=== PATIENT | female | born 1945 | race Caucasian/White ===

== ENCOUNTER → 2024-01-08 11:09 | Outpatient (REF) | payer MEDICARE, OTHER, SELFPAY | LOC: HWRCS 11:09 | PROVIDERS: ATTENDING PHYSICIAN Nurse Practitioner; FAMILY PHYSICIAN Family Medicine | DX: I48.0 Paroxysmal atrial fibrillation (principal); R06.02 Shortness of breath | CPT/HCPCS: 93306 ==

== ENCOUNTER 2024-05-20 05:54 | Day surgery (SDC) | payer MEDICARE, OTHER, SELFPAY ==
[2024-05-20] VITALS (21 sets, daily range): BP systolic 62–128; BP diastolic 46–70; BMI 23.4
[2024-05-20 09:15] LABS: ACT-LR - POC 308 Seconds (116-155)
[2024-05-20 09:36] LABS: ACT-LR - POC 355 Seconds (116-155)
[2024-05-20 09:57] LABS: ACT-LR - POC 366 Seconds (116-155)
--- NOTE | 2024-05-20 10:23 | ITS.CL.ABL ---
Web Marketing Manager - Ablation
Ablation
Procedure Report:
ELECTROPHYSIOLOGIC STUDY AND POSSIBLE ABLATION
DATE: May 20, 2024
Primary care: Dr Rhett Cyr
Primary regulator mechanic: Dr Dean Cantrell
Primary care: Programmed electrical stimulation induced an irregular atrial tachycardia between cycle length 290 and 340. At times when cycle length would stabilize entrainment pacing from the right atrium finds the right atrium to be outside the
tachycardia circuit.
Horse Stud Worker (present/active through the entirety of the procedure): Jose Hagan M.D.
INDICATION:
Symptomatic Atrial Fibrillation and atrial tachycardia.
Paroxysmal (previously persistent, arrhythmia burden improved significantly after prior ablation May 18, 2020)
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
HISTORY: See H and P.
Symptomatic AF, poorly controlled with attempted medical therapy.
JUDIE 05/15/20 without BRANDON thrombus
Platelet is 69,000
HAS-BLED: 2
Age
H/O Bleeding
CHADSVASc: 3
Age
F Gender
PRESENTING RHYTHM: SR with frequent PACs and short runs of PAT
HISTORY: See H and P.
Symptomatic AF, poorly controlled with attempted medical therapy.
ANTIARRHYTHMIC DRUG: Sotalol 120 mg twice daily
ANTICOAGULATION: Currently not anticoagulated due to recurrent severe thrombocytopenia from ITP
'TIME-OUT': called and confirmed.
SEDATION/ANESTHESIA: provided via the anesthesia department using general anesthesia.
PROCEDURE:
Ultrasound Guidance with real-time visualization of needle insertion and vessel patency performed by ca for femoral venous Vascular Access. Images were taken and saved for the patient's permanent record. Imaging findings typical femoral venous
anatomy. Direct visualization of needle puncture into the femoral vein was observed and recorded.
A decapolar CS catheter was placed within the CS for mapping and pacing.
The intracardiac ultrasound catheter was positioned in the RA for continuous intracardiac ultrasound imaging.
Heparin bolus and infusion to target ACT at 300 -350 seconds was administered. Transseptal puncture was performed. This entailed advancing a sheath with dilator into the superior vena cava and withdrawing both (monitoring intracardiac ultrasound,
fluoroscopy and tip pressure) with the tip oriented toward the atrial septum. The fossa ovalis was engaged (indicated by sudden displacement of the sheath tip as well as tenting of the fossa seen on intracardiac ultrasound).
Programmed electrical stimulation induced an irregular atrial tachycardia between cycle length 290 and 340. At times when cycle length would stabilize entrainment pacing from the right atrium finds the right atrium to be outside the tachycardia
circuit.
Transseptal puncture was performed. Left atrial catheter position was confirmed by echocardiographic imaging, pressure monitoring (LA mean pressure 16 mm Hg) and fluoroscopy. The sheath was advanced over the dilator and positioned in the left
atrium.
The [employer] Nearesta multipolar mapping/ablation Sphere-9 catheter was positioned through the transseptal sheath for high density mapping.
Geometry and voltage mapping was performed using the [employer] mapping system for three-dimensional electroanatomical mapping.
Catheter positioning was guided and confirmed using both I.C.E. and fluoroscopy.
Extensive three-dimensional electroanatomical mapping was performed. From her prior ablation there is near isolation of all 4 pulmonary veins (LSPV, LIPV, RSPV, RIPV). There is reconnection of the left inferior pulmonary vein towards its inferior
posterior quadrant. Mapping of the posterior wall of the left atrium finds a scarred left atrial wall which is not isolated.
Ablation strategy consisted of very isolating the left inferior pulmonary vein. Additional ablation strategy included ablation to isolate the posterior wall of the left atrium.
Cardioversion restored sinus rhythm.
Programmed electrical stimulation with burst atrial pacing down to 300 ms could not induce an arrhythmia. Burst atrial pacing down to 250 ms from the atria did induce a regular atrial tachycardia cycle length 290 ms. High density electroanatomical
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
Ablation strategy was to create a line of block from the right superior pulmonary vein down to the mitral valve as this was an area of marked velocity slowing.
While creating this ablation line the tachycardia slowed then terminated. Additional pulsed electric field ablation was performed along this line.
They will programmed electrical stimulation failed to induce any sustained arrhythmias.
I.C.E. :
Pre-Ablation Post-Ablation
LVEF: 55 % 55 %
WMA: None None
Pericardial effusion: None None
Additionally today, I interrogated the permanent pacemaker, [employer]onic dual-chamber permanent pacemaker. At the beginning of the study and at the end of the study there is no change in measured P waves and R waves or lead impedances. There is no
change in fluoroscopic appearance of the leads. I did reprogram pacing parameters to DDDR 70-130 ppm.
COMPLICATIONS:
None
SUMMARY:
- Mapping and ablation to isolate the PVs (Left PV isolation)
- Additional AF ablation set after PVI (LA posterior wall).
- Mapping and ablation of second tachycardia(Left atrial macroreentrant tachycardia)
- 3-D Electroanatomical Mapping
- Intracardiac Ultrasound
- Ultrasound guidance for vascular access
- Interrogation and reprogramming of the dual-chamber permanent pacemaker
Post ablation, I discussed today's findings and results with the patient's , Parveen.
RECOMMENDATIONS:
- Observe in monitored bed.
- She had not been on oral anticoagulation due to her severe thrombocytopenia from ITP. Most recent platelet count is up to 69,000. Will initiate Eliquis 5 mg twice daily and she will need to have her CBC followed closely. I will communicate this
to her regulator mechanic, Dr. Cantrell. Plan will be to maintain Eliquis for 2 months.
- Continue sotalol 120 mg twice daily
- Office visit with me will be scheduled for July 29, 2024
Copy to:
Dr Rhett Cyr
Dr Dean Cantrell
[2024-05-20] MEDS: ZOFRAN 4 MG IV (10:42)
--- NOTE | 2024-05-20 11:07 | PTCARENOTE ---
Pt is post PVI. EKG done and sent to Dr Hagan via [facility]. No new orders at this time.
--- NOTE | 2024-05-20 11:33 | PTCARENOTE ---
Pt turned for lung and skin assessment. Remainder of patches removed. Pt with petecchiae and ecchymosis noted on right upper back from previously removed patch. Pt also noted to have raised purple area to left lower back from patch removed. No open
skin wounds noted. Anushka CHAMBERLAIN made aware and in to evaluate pt. Will continue to monitor.
--- NOTE | 2024-05-20 15:06 | PTCARENOTE ---
Pt states she feels like she is having gas pains. Pt ambulated to the bathroom and urinated without difficulty. Pt states she has belched which has made her feel better. Pt requested and given kelley sam. Pt drinking kelley without difficulty. Will
continue to monitor.
--- NOTE | 2024-05-20 15:20 | PTCARENOTE ---
Pt states she is still having 'gas pains' rated 2/10. VSS. Pt's color is good. Pt with a run of AT and 2 PVC's but asymptomatic. Pt's at pt bedside. Will continue to monitor.
--- NOTE | 2024-05-20 15:30 | PTCARENOTE ---
Addendum entered by Leonora Rivas RN 05/20/24 15:56:
Anushka CHAMBERLAIN made aware of pt's rhythm strips.
Original Note:
Pt ambulated to bathroom again and states she has some relief after having gas while in the bathroom. Pt states she wants to lay flat in stretcher to stretch out and help with her gas pains. Pt laying flat and states 'this is helping me a lot'. Will
continue to monitor.
--- NOTE | 2024-05-20 15:55 | PTCARENOTE ---
Pt states she feels much better and is ready to go home. Right groin remains stable. VSS. Pt to be discharged.
--- NOTE | 2024-05-20 16:06 | W.PN.UPDATE ---
Update Note
Progress Note Update
Pt seen post PFA. Right groin site without ht/bleeding, non tender. OOB ambulating, urinating without difficulty. Some gas/flatulence post procedure, improves with ambulating. Post EKG APaced w/underlying SR, 1st deg AVB/RBBB as before, 70s, no
acute changes. Pt had not been on OAC and only low dose aspirin prior to procedure d/t history ITP. She will stop aspirin now and start eliquis 5mg BID, first dose tonight. She will remain on for several months until stopped per cardiology, at which
time she will resume aspirin. Followup at [facility] as scheduled. Home today if groin site/tele remain stable.
== END 2024-05-20 16:10 | disposition home or self-care (01) ==
LOC: CATH 05:54
PROVIDERS: ATTENDING PHYSICIAN Internal Medicine Cardiovascular Disease; FAMILY PHYSICIAN Family Medicine
DX: I48.0 Paroxysmal atrial fibrillation (principal); I08.3 Combined rheumatic disorders of mitral, aortic and tricuspid valves; I47.19 Other supraventricular tachycardia; I45.10 Unspecified right bundle-branch block; E03.9 Hypothyroidism, unspecified; Z85.3 Personal history of malignant neoplasm of breast; Z85.820 Personal history of malignant melanoma of skin; Z79.82 Long term (current) use of aspirin
CPT/HCPCS: 85347; 86850; 86900; 86901; 93005; 93312; 93320; 93325; 93655; 93656; 93657; C1730; C1733; C1759; C1760; C1766; C1892; C1894

== ENCOUNTER 2024-06-18 13:33 | Inpatient (IN) | payer MEDICARE, OTHER, SELFPAY ==
[2024-06-18] VITALS (33 sets, daily range): BP systolic 102–142; BP diastolic 53–105; BMI 23.5; BMI 23.9
[2024-06-18 05:59] LABS: % Basophils 0.5 % (0-2); % Eosinophils 0.8 % (0-6); % Immature Granulocytes 0.5 % (0-0.5); % Monocytes 5.9 % (1.7-9.3); % Neutrophils 70.3 % (42.2-75.2); Absolute Eosinophils 0.1 10^3/uL (0-0.7); Absolute Lymphocytes 1.4 10^3/uL (1.2-3.4); Absolute Monocytes 0.4 10^3/uL (0.1-0.6); Absolute Neutrophils 4.5 10^3/uL (1.4-6.5); Hematocrit 37.1 % (37.0-47.0); Hemoglobin 12.7 g/dL (12.0-16.0); Mean Corp Hgb Conc. 34.2 g/dL (33.0-37.0); Mean Corpuscular Hgb 30.8 pg (27.0-31.0); Mean Platelet Volume 12.3 fL (7.4-10.4); Nucleated Red Blood Cells % 0 %; Platelet Count 40 10^3/uL (130-400); Red Blood Cell Count 4.12 10^6/uL (4.20-5.40); Red Cell Dist. Width 13.4 % (11.5-14.5); White Blood Cell Count 6.4 10^3/uL (4.8-10.8)
--- NOTE | 2024-06-18 06:09 | ED.GENMED ---
History of Present Illness
General
Chief Complaint: Breathing Problem
Source: patient, records and spouse
Exam Limitations: none
Time Seen by Provider: 06/18/24 06:07
Nursing documentation reviewed up to this point in time: agreed with
History of Present Illness
History of Present Illness:
78-year-old female with a past medical history of atrial fibrillation on Eliquis, hyperthyroidism who presents to the ER with her for evaluation of multiple complaints�primary complaint which prompted ER visit was nausea with dry heaves.
Patient reports that she has history of A-fib/SVT and sees Dr. Christopher Hagan. She apparently had a cardiac ablation last month and says that since this ablation she has had general fatigue, some mild exertional dyspnea and lightheaded. She also
is concerned about sleep issues which she says have been going on for at least a month and probably longer and for which her primary doctor has prescribed Ambien. Today she presents to the emergency room for nausea and worsening fatigue. She says
that this has been ongoing for about 4 days this morning progressed to the point that she was having dry heaves which prompted her to finally come to the ER to be assessed. She has had associated diarrhea. She reports some abdominal
bloating/discomfort. Reports mild headache. She denies any chest pain. She denies any cough or fever. She denies any other complaints. Denies prior history of abdominal surgeries.
Review of Systems
Review of Systems
All Other Systems: ROS reviewed and negative except as documented in HPI and ROS
Constitutional: Reports fatigue; Denies fever or chills
Respiratory: Denies cough or trouble breathing
Cardiac: Denies chest pain
ABD/GI: Reports abdominal pain, nausea and diarrhea; Denies vomiting
: Denies flank pain
Musculoskeletal: Denies neck pain
Neurological: Reports dizzy and headache
Phy Exam
Physical Exam
Physical Exam:
General: Awake, alert, oriented x3; no acute distress
Head: Normocephalic, atraumatic
Eyes: Conjunctiva normal, pupils equal round and reactive to light bilaterally
Throat: Airway intact, handling secretions
Neck: Trachea midline, supple without meningismus
Lungs: Clear to auscultation bilaterally, no wheezing, rales, rhonchi
Heart: Regular rate and rhythm, no murmurs, gallops, or rubs
Abd: Soft, nondistended, mildly tender across the upper abdomen
Neuro: No gross deficits
Extremities: No edema in extremities, equal pulses in all extremities
Scores
Heart Failure Risk
Heart Failure Risk Score: Not Applicable
Heart Score for Chest Pain Patients
STEMI patient?: Not applicable
Withdrawal Assessment of Alcohol
Withdrawal Assessment Completed?: Not applicable
Course
Orders/Labs/Results
Orders:
Orders
06/18/24
Electrocardiogram (*1) Stat
Comment: ALREADY DONE
06/18/24 05:05
EKG- Treatment ONCE
06/18/24 05:10
Electrocardiogram (*1) Urgent
Reason for Study: Fatigue / Weakness
06/18/24 05:11
EKG- Treatment ONCE
06/18/24 05:42
Complete Blood Count/With Diff Urgent
Comprehensive Metabolic Panel Urgent
Troponin I Urgent
06/18/24 06:09
CR Chest Portable - 1 View Urgent
Comment:
Reason For Exam: sob
Reason Study Needs to be Portable: Unable to Transport
06/18/24 07:19
Ondansetron Injectable [Zofran] 4 mg IV NOW STA
06/18/24 07:20
CT Abd/pel (oral only)-DH Only Urgent
Comment:
Reason For Exam: abd bloating, N/V, upper abd tenderness
0.9% Sodium Chloride 500 ml [Nss] 500 ml IV BOLUS
Iohexol [Omnipaque] See Protocol PO NOW STA
06/18/24 07:25
Interrogate Pacemaker- Treatment ONCE
06/18/24 08:18
Lipase Urgent
TSH Reflex To Free T4 Urgent
06/18/24 10:56
Electrocardiogram (*1) Urgent
Reason for Study: Atrial Fibrillation
EKG- Treatment ONCE
06/18/24 11:23
Propofol [Diprivan] 20 ml .ROUTE .STK-MED
06/18/24 11:41
Ondansetron Injectable [Zofran] 4 mg .ROUTE .STK-MED ONE
06/18/24 11:42
Ondansetron Injectable [Zofran] 4 mg IV NOW STA
06/18/24 11:44
Propofol [Diprivan] 40 mg IV NOW STA
06/18/24 11:50
EKG with chest pain [ECG as needed] As Directed
ECG as needed for:: Rhythm Change
06/18/24 11:54
EKG with chest pain [ECG as needed] As Directed
ECG as needed for:: Rhythm Change
06/18/24 12:25
Metoprolol [Lopressor] 5 mg IV NOW STA
06/18/24 12:41
Admit/Transfer Patient As Directed
Co-Sign Provider:
Level of Care: Inpatient admission
Assign to:: Telemetry
Physician / Group: Eligio
Diagnosis: Afib with RVR
Reason for Telemetry: Arrhythmia
Date to Stop Telemetry: 06/21/24
Time to Stop Telemetry: 11:00
Reason for Hospitalization: Rate Control
Expected length of stay greater than two midnights?: Yes
ELOS- Estimated Length of Stay in days: 3
I certify the patient meets the requirements for IP care: Yes
PRN Pain Medication Management As Directed
May give lesser potent ordered pain med per pt: Yes
preference::
Protocol:: Medication orders for pain may be administered in a
manner that supports deferring to patient preference
when the pt is:
- Requesting an ordered lesser potent pain medication.
Least to most potent pain medications are defined
as: acetaminophen < NSAID < tramadol < opioids
(morphine, oxycodone, hydromorphone).
- Requesting a lesser dose of the same medication IF
ORDERED.
- Requesting a less intrusive route of administration
if both routes are prescribed by the provider (PO <
IV).
06/18/24 12:42
Code Status As Directed
Resuscitation Status: Full Code
06/18/24 12:43
Apixaban [Eliquis] 5 mg PO NOW STA
06/21/24 11:00
DC Protocol for Telemetry ONCE
Abnormal Lab Results
06/18/24
05:42
RBC 4.12 L 10^6/uL
(4.20-5.40)
Plt Count 40 L 10^3/uL
(130-400)
MPV 12.3 H fL
(7.4-10.4)
Sodium 133 L mmol/L
(135-145)
Chloride 97 L mmol/L
(98-107)
BUN 19 H mg/dl
(7-17)
Glucose 127 H mg/dl
(70-99)
06/18/24 05:42
06/18/24 05:42
Vital Signs
Initial and Last Documented VS:
Initial Vital Signs
Temp Pulse Resp BP Pulse Ox
37.2 C 100 25 116/62 96
06/18/24 05:01 06/18/24 05:01 06/18/24 05:01 06/18/24 05:01 06/18/24 05:01
Last Documented Vital Signs
Temp Pulse Resp BP Pulse Ox
37.3 C 130 23 113/85 95
06/18/24 12:10 06/18/24 14:00 06/18/24 14:00 06/18/24 14:00 06/18/24 14:00
Procedures
Cardioversion
Indication:: Afib
Performed by:: Lance Pinon MD
Synchronized?: Yes
Energy Used: 200 joules
Number of attempts: 3 (200J, 300J, 360J)
Successful?: No
ASA Risk Score: Class II
Any reaction or bad outcome to prior sedation/anesthesia?: No history of a reaction
Sedation level to be attained: moderate
Chart and allergies reviewed: Yes
Patient reassessed prior to sedation: Yes
Time out completed at (validating right patient & procedure): 11:44
History of difficult intubation: No
Airway free of obstruction: Yes
Patient has a gag reflex: Yes
Patient is able to open mouth: Yes
Patient has no dentures: Yes
Patient has no loose teeth: Yes
Medication administered by Provider during Moderate Sedation: IV Propofol (mg)
Total dose administered: 40
Time drug administered: 11:44
Start Time: 11:44
Stop Time: 11:58
MDM/Problems Addressed
Differential Diagnosis Includes:
Nausea/dry heaves: Gastritis, enteritis, bowel obstruction, pancreatitis, cholelithiasis; lower suspicion for anginal equivalent/VT
Fatigue/exertional shortness of breath: Symptomatic A-fib, anemia, electrolyte derangement/dehydration; CHF less likely clinically
MDM/Problems Addressed:
78-year-old female presents for evaluation of nausea with dry heaves and diarrhea over the past few days; also concerned about fatigue, exertional dyspnea and dizziness, sleep issues which have been ongoing for the past month or 2. Vital signs on
arrival significant for tachycardia and mild tachypnea. Physical exam as above. Will place an IV check labs including a CBC and a CMP, lipase, troponin, proBNP. Check thyroid studies. Check chest x-ray. Check an EKG. Will check CT abdomen
pelvis. Provide fluids and antiemetic. Monitor closely reassess as the above.
Labs reviewed: CBC unremarkable, CMP no clinically significant abnormalities. Troponin undetectable. Thyroid studies normal. Chest x-ray no acute disease. CT abdomen pelvis shows no acute abnormality to account for symptoms. Possible she has
mild viral illness causing nausea/dry heaves/diarrhea over the past few days. Regarding her weakness and shortness of breath since ablation: Her EKG today shows atrial fibrillation; her heart rate initially was in the 80s but clinical reassessment
she appears to be in rapid A-fib with heart rate in the 120s. Suspect that this is likely etiology of her symptoms that have been ongoing for the past month. She is maintained on Eliquis and compliant for the past month. I think she would be a
reasonable candidate for ED cardioversion and she is agreeable to this. I did discuss with cardiology who agrees reasonable candidate for cardioversion.
Attempted cardioversion as documented in procedure note unfortunately patient remains in atrial fibrillation with RVR although she will occasionally have dips in her heart rate into the 80s where she appears to be in atrial paced rhythm. Case
discussed with cardiology will plan to admit for adjustments of her cardiac medications. Trial dose of Lopressor here. Case discussed with hospitalist for admission.
Chronic conditions affecting care:
Atrial fibrillation
*Radiology
Radiology exam reviewed: radiology read reviewed
*Pulse Oximetry
Patient hypoxic: no
*EKG
Interpreted by ED Provider?: Yes
Heart Rate: 89
Rate: normal
Rhythm: a-fib
[place]: right axis deviation
QRS Pattern: right bundle branch block
*Critical Care Note
Total Time (30-74mins, 75-104mins- exclusive of procedures): Not Applicable
Data Reviewed
Review of Other/Old Records Reveals: Labs and Records
Source: patient and spouse
Patient Management
Discussion with other providers: Hospitalist (Discussed with hospitalist) and Industrial Relations Director (Discussed with cardiology)
Escalation/DeEscalation of care consider admission/obs:
Admission indicated
ED Attending Note
-
Portions of this chart may have been created with voice recognition software.� Occasional wrong word or��sound alike� substitutions may have occurred due to the inherent limitations of voice recognition software.
Discharge Plan
Departure
Patient Disposition: Admit
Date of Disposition: 06/18/24
Time of Disposition: 12:25
Admit to doctor: Eligio
Presentation/result/management discussed w/ accepting MD/DO: Hospitalist
Discharge Problem:
Atrial fibrillation with RVR, Nausea
Interventions
Interventions:
*Risk Screen - Suicide Last Done: 06/18/24 05:01
*Neglect/Abuse Screening Last Done: 06/18/24 05:01
*ED- Fall Risk Assessment Last Done: 06/18/24 05:15
*ED COVID-19 Vaccine History Last Done: 06/18/24 05:15
TR-Jfaofj-Lbcqnlkuyh Assessment Last Done: 06/18/24 08:26
ED- Cardiac Assessment Last Done: 06/18/24 08:26
ED- Neurological Assessment Last Done: 06/18/24 08:26
ED-Psychological Assessment Last Done: 06/18/24 05:15
ED- Pulmonary Assessment Last Done: 06/18/24 08:26
ED-Suicide Risk Assessment Last Done: 06/18/24 05:15
[2024-06-18 06:19] LABS: ALT (SGPT) 23 U/L (0-35); AST (SGOT) 34 U/L (14-36); Albumin 4.3 g/dl (3.5-5.0); Alkaline Phosphatase 89 U/L (38-126); Blood Urea Nitrogen 19 mg/dl (7-17); Calcium 9.7 mg/dl (8.4-10.2); Carbon Dioxide 26 mmol/L (22-30); Chloride 97 mmol/L (98-107); Estimated Creatinine Clearance 66 ml/min; Glucose 127 mg/dl (70-99); Potassium 4.2 mmol/L (3.5-5.1); Sodium 133 mmol/L (135-145); Total Bilirubin 0.9 mg/dl (0.2-1.3); Total Protein 6.9 g/dl (6.3-8.2); eGFR > 60.00
[2024-06-18 06:29] LABS: Troponin I < 0.012 ng/ml
--- NOTE | 2024-06-18 07:00 | EDRN ---
Dr. Pinon in room w/ pt at this time.
--- NOTE | 2024-06-18 07:22 | EDRN ---
Dr. Pinon TT'd about nausea med and headache.
[2024-06-18] MEDS: NSS 500 IV (07:34)
[2024-06-18] MEDS: ZOFRAN 4 MG IV ×3 (07:35→19:57)
[2024-06-18] MEDS: OMNIPAQUE 50 ML PO (07:38)
--- NOTE | 2024-06-18 08:21 | EDRN ---
Labs drawn and sent at this time. Pt drinking oral contrast for CT and nausea gone.
--- NOTE | 2024-06-18 08:28 | EDRN ---
Pt states headache is much less and nausea is now gone.
[2024-06-18 08:39] LABS: Lipase 61 U/L (23-300)
--- NOTE | 2024-06-18 08:54 | EDRN ---
Pacemaker interrogated at this time. Plugged in the back to send info now. ([employer]).
--- NOTE | 2024-06-18 10:57 | EDRN ---
Have attempted to interrogate pacemaker twice and w/ each interrogation, attempted twice to send data and data has failed to send. Dr. Kathrin hancock and Susie Keating RN Director of ED is looking into getting data to send.
--- NOTE | 2024-06-18 10:59 | EDRN ---
Pt asking to drink some water at this time, will TT Dr. Pinon.
--- NOTE | 2024-06-18 11:42 | EDRN ---
Pt having a cardioversion at this time. Martha COTTON is w/ Dr. Pinon performed cardioversion.
--- NOTE | 2024-06-18 11:53 | EDRN ---
Susie Long RN spoke w/ [employer] rep who is at [place] and will be by later.
[2024-06-18] MEDS: DIPRIVAN 40 MG IV (12:03)
--- NOTE | 2024-06-18 12:21 | HPS.HSE ---
Family Physician
-
Family Physician: Rhett Cyr
Chief Complaint
-
Fatigue and Lightheadedness
History of Present Illness
Patient is a 78 y/o female past medical history of persistent atrial fibrillation, tachy-krzysztof syndrome s/p pacemaker, valvular heart disease and ITP who presents with fatigue and lightheadedness. Patient reports she has not felt well since her
ablation last month. She reports fatigue, occasional lightheadedness and shortness of breath. Over the past few days symptoms have worsened. She reports diarrhea, and last night started with significant dry heaves and inability to sleep which
prompted her to come to the emergency department for evaluation. While in the emergency department she was found to have atrial fibrillation with rapid ventricular response. Attempt was made to cardiovert patient in the emergency which was
unsuccessful and at this time patient remains in atrial fibrillation.
Medical History
Past Medical History
Past Medical History: Reports Other
Additional Past Medical History:
Persistent Atrial Fibrillation
Tachy-Krzysztof Syndrome s/p Pacemaker
Valvular Heart Disease
Pulmonary Hypertension
Essential Hypertension
Hypothyroidism
Idiopathetic Thrombocytopenia Purpura
Obstructive Sleep Apnea
Breast Cancer
Past Surgical History: Reports Other
Additional Past Surgical History:
Right Mastectomy
Social History
Tobacco: Non-smoker
Alcohol: Other (Rare - About twice a year)
Personal:
Living: With Family
Family History
Family History: Not pertinent
Allergies / Home Medications
Allergies reflects when Allergies were last updated in [facility].
Home Medications with original date entered in [facility]
Allergy/Medication List:
Allergies
Allergy/AdvReac Type Severity Reaction Status Date / Time
Iodinated Contrast Media Allergy Tachycardia Verified 06/18/24 05:05
and hives
amoxicillin [From Augmentin] AdvReac stomach Verified 06/18/24 05:05
cramps
clavulanic acid AdvReac stomach Verified 06/18/24 05:05
[From Augmentin] cramps
codeine AdvReac can't Verified 06/18/24 05:05
function
and nausea
prednisone AdvReac palpitations, Verified 06/18/24 05:05
diarrhea,
cough,
fluid
retention,
pain, dizzy
Home Medications
amitriptyline 25 mg tablet 12.5 mg PO HS SLEEP 02/13/20
ascorbic acid (vitamin C) 500 mg tablet (Vitamin C) 500 mg PO NOON Supplement 05/15/20
hydrochlorothiazide 25 mg tablet 12.5 mg PO QPM Fluid retention/Swelling 05/15/20
ferrous sulfate 325 mg (65 mg iron) tablet (Iron (ferrous sulfate)) 325 mg PO QPM 01/11/23
levothyroxine 75 mcg tablet 75 mcg PO DAILY 01/11/23
cholecalciferol (vitamin D3) 50 mcg (2,000 unit) tablet 50 mcg PO NOON 01/16/23
apixaban 5 mg tablet (Eliquis) 5 mg PO BID #60 tabs 05/20/24
romiplostim 500 mcg subcutaneous solution 0 mcg SC Q2W ##0 05/20/24
sotalol 120 mg tablet 120 mg PO BID 05/20/24
vitamin B complex 1 tab PO QPM 05/20/24
bismuth subsalicylate 262 mg chewable tablet (Pepto-Bismol) 2 tab PO BIDPRN PRN gerd 06/18/24
calcium carbonate (Calcium 600) 600 mg PO DAILY 06/18/24
calcium carbonate (Tums) 200 mg PO BIDPRN PRN GERD 06/18/24
zolpidem 6.25 mg tablet,extended release,multiphase (Ambien CR) 3.125 mg PO HSPRN PRN sleep 06/18/24
Review of Systems
-
A 12 point ROS was completed and negative except as noted: Yes
Constitutional: Denies Fever or Chills
Respiratory: Reports Trouble Breathing
Cardiac: Denies Chest Pain or Palpitations
Physical Exam
Vital Signs
Vital Signs
Temp Pulse Resp BP Pulse Ox
99.2 F 122 24 122/78 98
06/18/24 12:10 06/18/24 12:15 06/18/24 12:15 06/18/24 12:10 06/18/24 12:15
Physical Exam
General: Comfortable and Conversant
HEENT: Anicteric and Moist mucous membranes
Respiratory: Clear and Non Labored Respirations
Cardiac: S1/S2, Irregular Rhythm, Tachycardia and Murmur
GI: Soft and Non Tender
Rectal: Deferred by Provider
Musculoskeletal: No Clubbing, No Cyanosis and No Edema
Skin: Warm and Dry
Neuro: Awake, Alert, Oriented and Nonfocal/grossly intact
Psych: Calm
Laboratory Results
-
06/18/24 05:42
06/18/24 05:42
Laboratory Results
Total Bilirubin 0.9 mg/dl (0.2-1.3) 06/18/24 05:42
AST 34 U/L (14-36) 06/18/24 05:42
ALT 23 U/L (0-35) 06/18/24 05:42
Alkaline Phosphatase 89 U/L (38-126) 06/18/24 05:42
Troponin I < 0.012 ng/ml 06/18/24 05:42
Lipase 61 U/L (23-300) 06/18/24 08:18
Data Reviewed
-
Lab Data: Labs Reviewed by me
Old Records: Reviewed
Impression/Plan
-
Persistent Atrial Fibrillation with Rapid Ventricular Response
-Unsuccessful cardioversion in ED x 3
-Consult Cardiology
-Give dose of Lopressor 5mg IV now to help with rate control
-Continue Sotalol
-Continue Eliquis
Valvular Heart Disease
-Monitor Is&Os and Daily Weights
Essential Hypertension
-Hold HCTZ
Idiopathetic Thrombocytopenia Purpura
-Patient maintained on Nplate as outpatient
-Platelet is on the low side however given her recent ablation and cardioversion attempt will continue Eliquis
-Hgb stable compared to prior
-Monitor for signs of bleeding
-Monitor platelet count
Hypothyroidism
-Continue Levothyroxine
Hx Tachy-Krzysztof Syndrome s/p Pacemaker
Hx Breast Cancer s/p Right Mastectomy
DVT proph: Eliquis
Code Status: Full Code
--- NOTE | 2024-06-18 12:35 | EDRN ---
aMyela ORTIZ in to see pt at 12:30. endoscope technician in room now to do med rec.
--- NOTE | 2024-06-18 12:40 | EDRN ---
Dr. Castaneda in to see pt.
[2024-06-18] MEDS: LOPRESSOR 5 MG IV (12:44)
--- NOTE | 2024-06-18 12:44 | W.PN.UPDATE ---
Update Note
Progress Note Update
This is an addendum to the H&P written by Mary Kate Mckee on 06/18/2024. Patient seen and examined independently with PA.
78-year-old female past medical history of persistent atrial fibrillation status post PVI on Eliquis, tachybradycardia syndrome with pacemaker, right bundle branch block, CAD, mild to moderate mitral regurgitation, moderate aortic stenosis, moderate
tricuspid regurgitation, moderate pulmonary regurgitation, questionable obstructive sleep apnea, hypothyroidism, osteoarthritis, right breast cancer status post right mastectomy/radiation, melanoma, bio cell carcinoma, idiopathic thrombocytopenia,
osteopenia, insomnia, hyponatremia, presenting with nausea and dry heaving.
Had ablation last month with mild fatigue, generalized shortness of breath and lightheadedness afterwards. Also insomnia. Also diarrhea/abdominal discomfort and dry heaving since yesterday.
Patient arrives in A-fib with RVR with heart rate 80s to 120s. IV fluids. Cardioversion was attempted today without success.
Labs unremarkable apart from chronic thrombocytopenia platelets of 40 from 55 previously. Chest x-ray unremarkable. CT abdomen pelvis unremarkable.
Patient with likely A-fib with RVR triggered by mild viral gastroenteritis, which is improved.
Continue IV fluids. IV Lopressor dose to be given. Cardiology consulted. Allow regular diet.
[2024-06-18] MEDS: ELIQUIS 5 MG PO ×2 (12:50→19:45)
--- NOTE | 2024-06-18 14:28 | CON.CAR ---
Addendum entered and electronically signed by Dung Major DO 06/18/24 20:39:
I saw and examined the patient.
The Timber Spotter's note was reviewed and I agree with the note.
Comment:
Plan:
Recurrent AFib post second PVI Apr 2024.
She failed attempted cv X 3 in ER
Reviewed with EP, admit with increased Sotalol load to 160 mg BID and monitor QTc
Cont anticoagulation for one month per Hem/onc
Monitor platelet counts closely with ITP.
If plt count remains <50 would have low threshold to consult Heme/onc
Interrogate device
Original Note:
Consultation
Consultation Request
Date/Time Consultation Requested: 06/18/24
Date/Time Consultation Performed: 06/18/24
Requesting Provider: Dr. Del Valle
Performing Provider: Dr. Major
Reason for Consultation: Chest pain, acute HF
Medical History
-
History of Present Illness:
Patient came to ER today with symptoms of N/V/D and SOB with rapid heart rate during activity and was found to be in A-fib with RVR and cardiology is now consulted. Patient has a known history of paroxysmal A-fib and previously had a PVI in 2020
which patient describes as waking up from ablation and feeling fantastic. At that time though the patient remained in the hospital for sotalol loading post PVI, but this was previously planned and patient had QT prolongation on 120 mg BID so dose
was lowered to 80 mg BID and QT was stable. Patient recurred with palpitations about 6 months ago which were short bursts of atrial tachycardia and A-fib with the longest duration being 10 minutes. There were initial attempts to add Toprol-XL and
then later Cardizem CD, but these made the patient feel fatigued. Her sotalol was continued throughout and dose was eventually increased to 120 mg BID. After talking with her Heme/Onc they felt as though she could tolerate a short course of
Eliquis and so the plan was made to pursue repeat ablation and continue sotalol post ablation. Patient had preablation JUDIE 05/20/2024 and then had planned PFA/PVI ablation 05/20/2024. At the end of the procedure the patient's [employer] DC
PPM was reprogrammed to DDDR at 70-130. Patient feels a slow she has been in A-fib since the time of ablation with complaints of chest pounding with activity and generalized fatigue. In the last 24 hours patient started with N/V/D and came to
ER with the constellation of symptoms as noted. Patient was found to be in A-fib with RVR and there was an attempted CV with 200 J then 300 J then 360 J all of which were unsuccessful and patient remains in A-fib. Cardiology is now consulted.
Patient denies PND or orthopnea. Patient denies LE edema. No CP.
PMH:
Previously paroxysmal now more persistent A-fib
s/p PVI 2020
s/p PFA/PVI 05/20/2024
Chronic sotalol
Chronic OAC with Eliquis
[employer] DC PPM
Thrombocytopenia
ITP
Mod-severe MR
Hypothyroid
LATRICE
HTN
R breast CA, s/p mastectomy 1979
Past Medical History
Past Medical History: Other (in HPI)
Past Surgical History: Cardiac ([employer] PPM 2015, s/p PVI 2020, s/p PFA/PVI 05/20/24) and Gynecological (right mastectomy)
Social History
Tobacco: Non-Smoker
Alcohol: Occasional
Drug: None
Personal:
Living: With Family
Family History
Family History: Other (father had valve replacement)
Allergies / Home Medications
Allergy/AdvReac Type Severity Reaction Status Date / Time
Iodinated Contrast Media Allergy Tachycardia Verified 06/18/24 05:05
and hives
amoxicillin [From Augmentin] AdvReac stomach Verified 06/18/24 05:05
cramps
clavulanic acid AdvReac stomach Verified 06/18/24 05:05
[From Augmentin] cramps
codeine AdvReac can't Verified 06/18/24 05:05
function
and nausea
prednisone AdvReac palpitations, Verified 06/18/24 05:05
diarrhea,
cough,
fluid
retention,
pain, dizzy
�Medication �Instructions �Recorded �Confirmed �Type
amitriptyline 25 mg tablet 12.5 mg PO HS SLEEP 02/13/20 06/18/24 History
ascorbic acid (vitamin C) 500 mg 500 mg PO NOON Supplement 05/15/20 06/18/24 History
tablet (Vitamin C)
hydrochlorothiazide 25 mg tablet 12.5 mg PO QPM Fluid 05/15/20 06/18/24 History
retention/Swelling
ferrous sulfate 325 mg (65 mg 325 mg PO QPM 01/11/23 06/18/24 History
iron) tablet (Iron (ferrous
sulfate))
levothyroxine 75 mcg tablet 75 mcg PO DAILY 01/11/23 06/18/24 History
cholecalciferol (vitamin D3) 50 50 mcg PO NOON 01/16/23 06/18/24 History
mcg (2,000 unit) tablet
apixaban 5 mg tablet (Eliquis) 5 mg PO BID #60 tabs 05/20/24 06/18/24 Rx
romiplostim 500 mcg subcutaneous 71.6 mcg SC Q2W ##0 05/20/24 06/18/24 History
solution
sotalol 120 mg tablet 120 mg PO BID 05/20/24 06/18/24 History
vitamin B complex 1 tab PO QPM 05/20/24 06/18/24 History
bismuth subsalicylate 262 mg 2 tab PO BIDPRN PRN gerd 06/18/24 06/18/24 History
chewable tablet (Pepto-Bismol)
calcium carbonate (Calcium 600) 600 mg PO DAILY 06/18/24 06/18/24 History
calcium carbonate (Tums) 200 mg PO BIDPRN PRN GERD 06/18/24 06/18/24 History
zolpidem 6.25 mg tablet,extended 3.125 mg PO HSPRN PRN sleep 06/18/24 06/18/24 History
release,multiphase (Ambien CR)
Review of Systems
-
History Source: Patient
All other systems: Negative unless noted
Physical Exam
Vital Signs
Temp Pulse Resp BP Pulse Ox
99.2 F 130 23 113/85 95
06/18/24 12:10 06/18/24 14:00 06/18/24 14:00 06/18/24 14:00 06/18/24 14:00
GEN: NAD. AAOx3
HEENT: EOMI, MMM, wearing glasses
LUNGS: RA. CTA B/L, no wheeze
CV: Afib on tele. Irreg irreg, S1/S2, 2/6 syst LSB
ABD: soft, BS+, NT, ND
EXT: No clubbing, cyanosis, lesions or edema B/L
NEURO: Gross non-focal
SKIN: Warm, dry and pink. No rash
Lab Results
06/18/24 05:42
06/18/24 05:42
Troponin I < 0.012 ng/ml 06/18/24 05:42
Impression / Plan
-
Primary care: Dr Rhett Cyr
Primary pastoral assistant: Dr Dean Cantrell
Primary cards: Dr. Christopher Hagan
Impression:
Presented to ER with N/V/D and persistent A-fib with RVR 06/18/2024
Persistent A-fib with RVR, s/p unsuccessful CV in ER 06/18/2024
Previously paroxysmal now more persistent A-fib
s/p PVI 2020
s/p PFA/PVI 05/20/2024
Chronic sotalol
Chronic OAC with Eliquis
[employer] DC PPM
Thrombocytopenia
ITP
Mod-severe MR
Hypothyroid
LATRICE
HTN
R breast CA, s/p mastectomy 1980
Echo 01/08/2024: EF 55 to 60%, mild MS with mean gradient 5 mmHg, mild to moderate eccentric MR, moderate AAS peak/mean 18/12 mmHg and RAMSES 0.8 cm SQ, mild to moderate aortic regurgitation, severe TR with moderate to severe PHTN and PAP 55 to 60 mmHg
JUDIE 05/20/2024: Normal BiV size and function without WMA, no evidence of spontaneous echo contrast or thrombus in the RA or LA/BRANDON, moderate MS
Plan:
-Patient came to ER today with symptoms of N/V/D and SOB with rapid heart rate during activity and was found to be in A-fib with RVR and cardiology is now consulted. Patient has a known history of paroxysmal A-fib and previously had a PVI in
2020 which patient describes as waking up from ablation and feeling fantastic. At that time though the patient remained in the hospital for sotalol loading post PVI, but this was previously planned and patient had QT prolongation on 120 mg BID so
dose was lowered to 80 mg BID and QT was stable. Patient recurred with palpitations about 6 months ago which were short bursts of atrial tachycardia and A-fib with the longest duration being 10 minutes. There were initial attempts to add Toprol-XL
and then later Cardizem CD, but these made the patient feel fatigued. Her sotalol was continued throughout and dose was eventually increased to 120 mg BID. After talking with her Heme/Onc they felt as though she could tolerate a short course of
Eliquis and so the plan was made to pursue repeat ablation and continue sotalol post ablation. Patient had preablation JUDIE 05/20/2024 and then had planned PFA/PVI ablation 05/20/2024. At the end of the procedure the patient's [employer] DC
PPM was reprogrammed to DDDR at 70-130. Patient feels a slow she has been in A-fib since the time of ablation with complaints of chest pounding with activity and generalized fatigue. In the last 24 hours patient started with N/V/D and came to
ER with the constellation of symptoms as noted. Patient was found to be in A-fib with RVR and there was an attempted CV with 200 J then 300 J then 360 J all of which were unsuccessful and patient remains in A-fib. Cardiology is now consulted.
Patient denies PND or orthopnea. Patient denies LE edema. No CP.
-ECG reviewed by me shows A-fib with RVR and RBBB/LAFB, QTc 424 ms
-Will ask [employer] to check device in an attempt to develop a timeline based on patient's symptoms which she says have been fairly constant for the last month since ablation, bleeding up to ablation device check showed at the most 10
minutes of A-fib at any one time.
-Patient with unsuccessful CV in the ER. Recommend admission and uptitration of sotalol to 160 mg BID. Patient did not take her usual dose of sotalol on 06/18/2024 AM. Will give sotalol 160 mg now and then BID starting 06/19/2024, all sotalol
orders placed by me. Follow QTc. Patient had QT prolongation during initial sotalol loading back in 2020.
-Potassium 4.2 in the ER. Will add on magnesium level, order placed by me.
-CXR report reviewed by me and no evidence of acute HF.
-CT abdomen/pelvis without acute process and patient may have viral gastroenteritis
-Patient with known ITP. She follows with Dr. Cantrell at [facility] and saw him 1 week prior to PFA/PVI on 05/20/2024 and plan at that time was for 1 month of OAC. The last [facility] note reviewed by me and there were lower
limit for acceptable platelet count was 50K and current platelet count 40K. Will repeat CBC in AM and if platelet count remains less than 40K will consult Heme/Onc
--- NOTE | 2024-06-18 14:50 | EDRN ---
Pt OOB to BR and back to stretcher. Pt replaced on rubber goods cutter finisher. Pt denies any loose stools or any BM since her arrival here in ED. Pt was just seen by Tammie hurtado/ cardiology who said pt can have a boxed lunch. Addy ED PCT getting pt a boxed
lunch.
--- NOTE | 2024-06-18 16:45 | W.CARD.DEVCH ---
Cardiac Device Check
-
Device: Pacemaker
Lease Broker: [employer]
The patient's device was interrogated with assistance of the device sales representative wire rope followed by a complete physician review. The device had normal function. No abnormalities seen.
A-fib burden 1% by device check, but on further checked by rep the patient was set for mode switch at a rate of 160 and her A. tach/A-fib rate is lower than that so likely under sensing her true burden of A-fib/tach. Device rep lowered mode switch
rate to 140. Otherwise normal sensing and capture of all leads.
[2024-06-18 16:57] LABS: Magnesium 1.9 mg/dl (1.6-2.3)
[2024-06-18] MEDS: BETAPACE 160 MG PO (16:57)
--- NOTE | 2024-06-18 18:31 | EDRN ---
Pt had all her supper.
--- NOTE | 2024-06-18 18:32 | EDRN ---
Pt OOB to BR at this time.
[2024-06-18] MEDS: ELAVIL 12.5 MG PO (21:40)
[2024-06-18] MEDS: AMBIEN 2.5 MG PO (21:41)
[2024-06-19] MEDS: TYLENOL 650 MG PO ×2 (00:29→21:12)
[2024-06-19 00:51] VITALS: BMI 23.9
[2024-06-19 03:32] VITALS: BP 115/63
--- NOTE | 2024-06-19 03:34 | PTCARENOTE ---
Patient arrived to unit during change of shift via stretcher with dx of Afib with RVR. Patient AAOx3. Pleasant and cooperative. HR Afib with HR in 70s-80s and A paced. Patient denies chest discomfort or SOB. Oriented to unit. Call varner within reach.
[2024-06-19 05:14] VITALS: BMI 23.9
--- NOTE | 2024-06-19 06:19 | PTCARENOTE ---
ETHOLOGIST notified of QTc >500 per order. Patient vitals stable. Denies chest discomfort. No new orders but per ETHOLOGIST patient not to have any further Zofran.
[2024-06-19] MEDS: SYNTHROID 75 MCG PO (06:26)
[2024-06-19 07:46] VITALS: BP 133/60
[2024-06-19] MEDS: ELIQUIS 5 MG PO ×2 (08:14→19:35)
[2024-06-19] MEDS: BETAPACE 160 MG PO (08:14)
[2024-06-19 08:44] LABS: Hematocrit 36.3 % (37.0-47.0); Hemoglobin 12.3 g/dL (12.0-16.0); Mean Corp Hgb Conc. 33.9 g/dL (33.0-37.0); Mean Corpuscular Hgb 30.7 pg (27.0-31.0); Mean Corpuscular Volume 90.5 fL (81.0-99.0); Mean Platelet Volume 12.2 fL (7.4-10.4); Platelet Count 51 10^3/uL (130-400); Red Blood Cell Count 4.01 10^6/uL (4.20-5.40); Red Cell Dist. Width 13.4 % (11.5-14.5); White Blood Cell Count 6.2 10^3/uL (4.8-10.8)
[2024-06-19 09:02] LABS: Blood Urea Nitrogen 20 mg/dl (7-17); Calcium 9.3 mg/dl (8.4-10.2); Carbon Dioxide 26 mmol/L (22-30); Chloride 97 mmol/L (98-107); Estimated Creatinine Clearance 66 ml/min; Glucose 97 mg/dl (70-99); Magnesium 1.9 mg/dl (1.6-2.3); Potassium 4.1 mmol/L (3.5-5.1); Sodium 133 mmol/L (135-145); eGFR > 60.00
[2024-06-19 10:56] VITALS: BP 117/74
--- NOTE | 2024-06-19 11:04 | PTCARENOTE ---
EKG done 2 hour post Betapace 160mg (2nd dose) QTC 551. Cardiology and hospitalist aware . Pt is asymptomatic, heart rate 97
--- NOTE | 2024-06-19 12:32 | CM ---
CM reviewed chart, patient seen bedside with , initial assessment completed. Patient resides with spouse in a single story home, two small steps to enter. Patient denies the use of DME, denies VN/SNF history. Patient confirms PCP Rhett
Klarissa, pharmacy [facility], confirms prescription coverage through [facility]. CM will continue to follow for all discharge planning needs.
Plan; home with spouse, no needs likely.
--- NOTE | 2024-06-19 12:36 | W.PN.HOSP.TC ---
Today's Communication/Plan
-
Monitor Qtc
cont high dose of sotalol
Cards recs
Assessment / Plan
Assessment / Plan
Persistent Atrial Fibrillation with Rapid Ventricular Response
-Unsuccessful cardioversion in ED x 3
-Consult Cardiology
-s/p Lopressor 5mg IV now to help with rate control
-Continue Sotalol and dose increased to 160mg Q12H
-Continue Eliquis
-trend Qtc
Valvular Heart Disease
-Monitor Is&Os and Daily Weights
Essential Hypertension
-Hold HCTZ
-BP well controlled 117/74
Idiopathetic Thrombocytopenia Purpura
-Patient maintained on Nplate as outpatient
-Platelet is on the low side however given her recent ablation and cardioversion attempt will continue Eliquis
-Hgb stable compared to prior
-Monitor for signs of bleeding
-Monitor platelet count. Currently at 51k. Low threshold for Heme input.
Hypothyroidism
-Continue Levothyroxine
[place]/Abd discomfort
-resolved. monitor for diet tolerance
-CT abd/pelvis negative for acute pathology
-Tigan if needed for nausea however, currently seems to be tolerating diet.
Hx Tachy-Maynor Syndrome s/p Pacemaker
Hx Breast Cancer s/p Right Mastectomy
Mild hyponatremia
DVT proph: Eliquis
Code Status: Full Code
Anticipated Discharge: > 48 hours
Subjective/Interval History
-
Date of Service: June 19, 2024
denies any nausea or vomiting or palpations
states feeling better
Objective Data
-
Labs:
Laboratory Results
06/19/24
07:59
WBC 6.2
Hgb 12.3
Hct 36.3 L
Plt Count 51 L D
Sodium 133 L
Potassium 4.1
Chloride 97 L
Carbon Dioxide 26
BUN 20 H
Creatinine 0.7
Glucose 97
Calcium 9.3
Vital Signs:
Vital Signs
Temp Pulse Resp BP Pulse Ox
98.4 F 79 18 117/74 94
06/19/24 10:56 06/19/24 10:56 06/19/24 10:56 06/19/24 10:56 06/19/24 10:56
I&O
06/18/24 06/19/24 06/20/24
06:59 06:59 06:59
Intake Total 960 / 960
Balance 960 / 960
Physical Exam
-
General: Well Developed and No Apparent Distress
HEENT: Normocephalic, Atraumatic and Moist Mucous Membranes
Respiratory: Clear to Auscultation
Cardiac: S1/S2; Negative Murmur, Rub or Gallop
GI: Soft, Nontender, Nondistended and Normal Bowel Sounds; Negative Organomegaly
Rectal: Deferred by Provider
Musculoskeletal: No Clubbing, No Cyanosis and No Edema
Skin: Negative Rash
Neuro: Awake, Alert, Oriented, AO x 3, No Motor Deficits and Nonfocal/Grossly Intact
Psych: Calm
--- NOTE | 2024-06-19 14:07 | W.PN.CARDCBS ---
Addendum entered and electronically signed by Jacky Randall MD 06/19/24 17:01:
Discussed with EP, given prolonged QT interval would hold sotalol and monitor on telemetry overnight
Addendum entered and electronically signed by Jacky Randall MD 06/19/24 16:21:
I saw and examined the patient.
The Paper Roller's note was reviewed and I agree with the note.
Comment: Briefly, 78-year-old woman past medical history of persistent atrial fibrillation with prior PVI and chronically on sotalol for rhythm control as well as thrombocytopenia who presents in atrial fibrillation with rapid ventricular response.
Direct-current cardioversion was attempted in the emergency department but unsuccessful and patient was admitted for monitoring during up titration of sotalol.
By review of telemetry and ECGs appears that she is maintaining sinus rhythm with occasional atrial pacing on the higher dose of sotalol
QTc is longer today however she was receiving Zofran overnight and also has an underlying bundle branch block -okay to continue current dosing
Would avoid QTc prolonging drugs
Replete electrolytes as needed
Keep on telemetry overnight
Repeat ECG following additional doses of sotalol
Original Note:
Today's Communication / Plan
-
Cont sotalol 160 mg BID
CV in AM
Plt has improved, cont Eliquis 5 mg BID
Impression / Plan
-
Primary care: Dr Rhett Cyr
Primary patient care specialist: Dr Dean Cantrell
Primary cards: Dr. Christopher Hagan
Impression:
Presented to ER with N/V/D and persistent A-fib with RVR 06/18/2024
Persistent A-fib with RVR, s/p unsuccessful CV in ER 06/18/2024
Previously paroxysmal now more persistent A-fib
s/p PVI 2020
s/p PFA/PVI 05/20/2024
Chronic sotalol
Chronic OAC with Eliquis
[employer] DC PPM
Thrombocytopenia
ITP
Mod-severe MR
Hypothyroid
LATRICE
HTN
R breast CA, s/p mastectomy 1980
Echo 01/08/2024: EF 55 to 60%, mild MS with mean gradient 5 mmHg, mild to moderate eccentric MR, moderate AAS peak/mean 18/12 mmHg and RAMSES 0.8 cm SQ, mild to moderate aortic regurgitation, severe TR with moderate to severe PHTN and PAP 55 to 60 mmHg
JUDIE 05/20/2024: Normal BiV size and function without WMA, no evidence of spontaneous echo contrast or thrombus in the RA or LA/BRANDON, moderate MS
Plan:
-QTc 551 ms by ECG 06/19/2024 on ECG reviewed by me, but patient is in A-fib and A paced rhythm.
-Labs reviewed by me, potassium 4.1 and magnesium 1.9 on 06/19/2024
-Continues with A-fib, but ventricular response has improved and patient is less symptomatic. [employer] rep performed device check 06/18/2024 and indicated that mode switch had previously been set to 160 leading to likely under detection of
A-fib and suture burden unknown. Mode switch rate decreased to 140
-Continue sotalol 160 BID
-If patient fails to spontaneously convert to SR will plan on CV in AM
-Patient with unsuccessful CV in the ER 06/18/24.
-Patient with a history of ITP and platelet count as low as 40,000 on 06/18/2024, but improved to 51,000 on 06/19/2024. Will continue with Eliquis 5 mg BID
HPI: Patient came to ER today with symptoms of N/V/D and SOB with rapid heart rate during activity and was found to be in A-fib with RVR and cardiology is now consulted. Patient has a known history of paroxysmal A-fib and previously had a PVI in
2020 which patient describes as waking up from ablation and feeling fantastic. At that time though the patient remained in the hospital for sotalol loading post PVI, but this was previously planned and patient had QT prolongation on 120 mg BID so
dose was lowered to 80 mg BID and QT was stable. Patient recurred with palpitations about 6 months ago which were short bursts of atrial tachycardia and A-fib with the longest duration being 10 minutes. There were initial attempts to add Toprol-XL
and then later Cardizem CD, but these made the patient feel fatigued. Her sotalol was continued throughout and dose was eventually increased to 120 mg BID. After talking with her Heme/Onc they felt as though she could tolerate a short course of
Eliquis and so the plan was made to pursue repeat ablation and continue sotalol post ablation. Patient had preablation JUDIE 05/20/2024 and then had planned PFA/PVI ablation 05/20/2024. At the end of the procedure the patient's [employer] DC
PPM was reprogrammed to DDDR at 70-130. Patient feels a slow she has been in A-fib since the time of ablation with complaints of chest pounding with activity and generalized fatigue. In the last 24 hours patient started with N/V/D and came to
ER with the constellation of symptoms as noted. Patient was found to be in A-fib with RVR and there was an attempted CV with 200 J then 300 J then 360 J all of which were unsuccessful and patient remains in A-fib. Cardiology is now consulted.
Patient denies PND or orthopnea. Patient denies LE edema. No CP.
Progress Note - [place] Worker
Subjective
Date of Service: June 19, 2024
Feels less palpitations and SOB
Objective
Labs:
06/19/24 07:59
06/19/24 07:59
Labs
Hgb 12.3 g/dL (12.0-16.0) 06/19/24 07:59
Hct 36.3 % (37.0-47.0) L 06/19/24 07:59
Plt Count 51 10^3/uL (130-400) L D 06/19/24 07:59
Sodium 133 mmol/L (135-145) L 06/19/24 07:59
Potassium 4.1 mmol/L (3.5-5.1) 06/19/24 07:59
BUN 20 mg/dl (7-17) H 06/19/24 07:59
Creatinine 0.7 mg/dL (0.6-1.0) 06/19/24 07:59
Glucose 97 mg/dl (70-99) 06/19/24 07:59
Troponins
06/18/24
05:42
Troponin I < 0.012
Vital Signs and I&O:
Vital Signs
Temp Pulse Resp BP Pulse Ox
98.4 F 79 18 117/74 94
06/19/24 10:56 06/19/24 10:56 06/19/24 10:56 06/19/24 10:56 06/19/24 10:56
Vital Signs
Temp Pulse Resp BP Pulse Ox
98.4 F 79 18 117/74 94
06/19/24 10:56 06/19/24 10:56 06/19/24 10:56 06/19/24 10:56 06/19/24 10:56
Intake & Output
06/17/24 06/18/24 06/19/24 06/20/24
06:59 06:59 06:59 06:59
Intake Total 960 / 960
Balance 960 / 960
Physical Exam
Physical Exam
GEN: NAD.
HEENT: MMM
LUNGS: RA.
CV: Afib on tele.
EXT: No edema B/L
NEURO: Gross non-focal
SKIN: No rash
[2024-06-19 15:11] VITALS: BP 122/63
[2024-06-19 19:34] VITALS: BP 101/57
[2024-06-19] MEDS: ELAVIL 12.5 MG PO (21:11)
[2024-06-20 00:03] VITALS: BP 113/67
[2024-06-20 03:16] VITALS: BP 111/60
[2024-06-20 05:31] VITALS: BMI 23.9
[2024-06-20] MEDS: SYNTHROID 75 MCG PO (06:28)
[2024-06-20 07:00] VITALS: BP 137/85
[2024-06-20] MEDS: ELIQUIS 5 MG PO (07:57)
[2024-06-20 08:00] VITALS: BMI 23.9
[2024-06-20 08:32] LABS: % Basophils 1.2 % (0-2); % Eosinophils 1.5 % (0-6); % Immature Granulocytes 0.3 % (0-0.5); % Lymphocytes 32.9 % (20.5-51.1); % Monocytes 7.5 % (1.7-9.3); % Neutrophils 56.6 % (42.2-75.2); Absolute Basophils 0.1 10^3/uL (0-0.2); Absolute Eosinophils 0.1 10^3/uL (0-0.7); Absolute Lymphocytes 1.9 10^3/uL (1.2-3.4); Absolute Monocytes 0.4 10^3/uL (0.1-0.6); Absolute Neutrophils 3.3 10^3/uL (1.4-6.5); Hematocrit 35.9 % (37.0-47.0); Hemoglobin 12.1 g/dL (12.0-16.0); Mean Corp Hgb Conc. 33.7 g/dL (33.0-37.0); Mean Corpuscular Hgb 30.7 pg (27.0-31.0); Mean Corpuscular Volume 91.1 fL (81.0-99.0); Mean Platelet Volume 11.4 fL (7.4-10.4); Nucleated Red Blood Cells % 0 %; Platelet Count 61 10^3/uL (130-400); Red Blood Cell Count 3.94 10^6/uL (4.20-5.40); Red Cell Dist. Width 13.5 % (11.5-14.5); White Blood Cell Count 5.9 10^3/uL (4.8-10.8)
[2024-06-20 08:38] LABS: Blood Urea Nitrogen 19 mg/dl (7-17); Calcium 9.1 mg/dl (8.4-10.2); Carbon Dioxide 28 mmol/L (22-30); Chloride 100 mmol/L (98-107); Estimated Creatinine Clearance 66 ml/min; Glucose 97 mg/dl (70-99); Potassium 4.2 mmol/L (3.5-5.1); Sodium 135 mmol/L (135-145); eGFR > 60.00
--- NOTE | 2024-06-20 10:31 | W.PN.CARDCBS ---
Addendum entered and electronically signed by Joan Hagan MD 06/20/24 12:22:
I saw and examined the patient.
The Teaching Artist's note was reviewed and I agree with the note.
Comment: Exam stable, heart rate up and down at times. No edema. Lungs clear. She is feeling a little bit better than prior. She walked to the bathroom without symptoms despite having paroxysmal atrial tachycardia status post recent pulmonary
vein isolation 04/2024. She unfortunately developed prolonged QT with increased sotalol dose. Sotalol has been discontinued. Discussed with EP. Discussed with patient at length. QT interval still somewhat prolonged. Pacemaker in place.
Plan at this time:
-Toprol-XL started
-Avoid sotalol and QT prolonging medications
-Reassess with ambulation this afternoon and if she is stable she may be discharged
-On discharge outpatient EKG a day that usual glass wool blanket machine feeder is in the office. Consideration for starting amiodarone that day pending EKG.
Patient agrees with the plan.
Reassess this afternoon.
Original Note:
Today's Communication / Plan
-
Sotalol has been stopped and will not be restarted due to prolonged QT
Start Toprol XL 25 mg daily, if improved can go home this afternoon
If able to go home will see in the office in 1 week to recheck ECG and talk about starting amiodarone to get her through healing period post-ablation
Impression / Plan
-
Primary care: Dr Rhett Cyr
Primary professional athletes coach: Dr Dean Cantrell
Primary cards: Dr. Christopher Hagan
Impression:
Presented to ER with N/V/D and persistent A-fib with RVR 06/18/2024
Persistent A-fib with RVR, s/p unsuccessful CV in ER 06/18/2024
Previously paroxysmal now more persistent A-fib
s/p PVI 2020
s/p PFA/PVI 05/20/2024
Chronic sotalol
Chronic OAC with Eliquis
[employer] DC PPM
Thrombocytopenia
ITP
Mod-severe MR
Hypothyroid
LATRICE
HTN
R breast CA, s/p mastectomy 1980
Echo 01/08/2024: EF 55 to 60%, mild MS with mean gradient 5 mmHg, mild to moderate eccentric MR, moderate AAS peak/mean 18/12 mmHg and RAMSES 0.8 cm SQ, mild to moderate aortic regurgitation, severe TR with moderate to severe PHTN and PAP 55 to 60 mmHg
JUDIE 05/20/2024: Normal BiV size and function without WMA, no evidence of spontaneous echo contrast or thrombus in the RA or LA/BRANDON, moderate MS
Plan:
-QTc prolonged with attempted increase to 160 mg PO BID this admission. Sotalol has been stopped, last dose 06/19/24 AM.
-ECG reviewed 06/20/24 and patient with A paced and then Afib/tach. Tele reviewed 06/20/24 and patient with paroxysmal atrial arrhythmia.
-Will add Toprol XL 25 mg daily starting now to help with rate control. Patient previously on Toprol XL and verapamil SR for rate control years ago and tolerated this well. Will check on patient later 06/20/24 and if symptomatically stable she can be
d/c'd to home and then follow up in the office in 1 week and to check ECG. If QTc improved in the office could add amiodarone for attempted rhythm control until patient is at least 2 months post-ablation that was performed 05/20/24
-Potassium 4.2 on 06/20/24, labs reviewed by me
-[employer] rep performed device check 06/18/2024 and indicated that mode switch had previously been set to 160 leading to likely under detection of A-fib and suture burden unknown. Mode switch rate decreased to 140
-Patient with unsuccessful CV in the ER 06/18/24.
-Patient with a history of ITP and platelet count as low as 40,000 on 06/18/2024, but improved to 51,000 on 06/19/2024 and then 61,000 on 06/20/2024. Will continue with Eliquis 5 mg BID
HPI: Patient came to ER today with symptoms of N/V/D and SOB with rapid heart rate during activity and was found to be in A-fib with RVR and cardiology is now consulted. Patient has a known history of paroxysmal A-fib and previously had a PVI in
2020 which patient describes as waking up from ablation and feeling fantastic. At that time though the patient remained in the hospital for sotalol loading post PVI, but this was previously planned and patient had QT prolongation on 120 mg BID so
dose was lowered to 80 mg BID and QT was stable. Patient recurred with palpitations about 6 months ago which were short bursts of atrial tachycardia and A-fib with the longest duration being 10 minutes. There were initial attempts to add Toprol-XL
and then later Cardizem CD, but these made the patient feel fatigued. Her sotalol was continued throughout and dose was eventually increased to 120 mg BID. After talking with her Heme/Onc they felt as though she could tolerate a short course of
Eliquis and so the plan was made to pursue repeat ablation and continue sotalol post ablation. Patient had preablation JUDIE 05/20/2024 and then had planned PFA/PVI ablation 05/20/2024. At the end of the procedure the patient's [employer] DC
PPM was reprogrammed to DDDR at 70-130. Patient feels a slow she has been in A-fib since the time of ablation with complaints of chest pounding with activity and generalized fatigue. In the last 24 hours patient started with N/V/D and came to
ER with the constellation of symptoms as noted. Patient was found to be in A-fib with RVR and there was an attempted CV with 200 J then 300 J then 360 J all of which were unsuccessful and patient remains in A-fib. Cardiology is now consulted.
Patient denies PND or orthopnea. Patient denies LE edema. No CP.
Progress Note - Motor Brakeman
Subjective
Date of Service: June 20, 2024
She is tired, was not lightheaded walking to bathroom this morning
Objective
Labs:
06/20/24 07:06
06/20/24 07:06
Labs
Hgb 12.1 g/dL (12.0-16.0) 06/20/24 07:06
Hct 35.9 % (37.0-47.0) L 06/20/24 07:06
Plt Count 61 10^3/uL (130-400) L 06/20/24 07:06
Sodium 135 mmol/L (135-145) 06/20/24 07:06
Potassium 4.2 mmol/L (3.5-5.1) 06/20/24 07:06
BUN 19 mg/dl (7-17) H 06/20/24 07:06
Creatinine 0.7 mg/dL (0.6-1.0) 06/20/24 07:06
Glucose 97 mg/dl (70-99) 06/20/24 07:06
Troponins
06/18/24
05:42
Troponin I < 0.012
Vital Signs and I&O:
Vital Signs
Temp Pulse Resp BP Pulse Ox
97.6 F 125 18 137/85 98
06/20/24 07:00 06/20/24 07:00 06/20/24 07:00 06/20/24 07:00 06/20/24 07:00
Vital Signs
Temp Pulse Resp BP Pulse Ox
97.6 F 125 18 137/85 98
06/20/24 07:00 06/20/24 07:00 06/20/24 07:00 06/20/24 07:00 06/20/24 07:00
Intake & Output
06/18/24 06/19/24 06/20/24 06/21/24
06:59 06:59 06:59 06:59
Intake Total 960 / 960 960 / 960
Balance 960 / 960 960 / 960
Physical Exam
Physical Exam
GEN: NAD.
HEENT: MMM
LUNGS: RA.
CV: Afib and SR on tele, she is paroxysmal.
EXT: No edema B/L
NEURO: Gross non-focal
SKIN: No rash
--- NOTE | 2024-06-20 10:43 | W.PN.HOSP.TC ---
Today's Communication/Plan
-
await cards recs
restart home meds
monitor for diet tolerance
Assessment / Plan
Assessment / Plan
Persistent Atrial Fibrillation with Rapid Ventricular Response
-Unsuccessful cardioversion in ED x 3
-Consult Cardiology
-s/p Lopressor 5mg IV now to help with rate control
-Continue Sotalol and dose increased to 160mg [id number] on hold
-Continue Eliquis
-trend Qtc 522
-await further cards recs
Valvular Heart Disease
-Monitor Is&Os and Daily Weights
Essential Hypertension
-restart HCTZ
Idiopathetic Thrombocytopenia Purpura
-Patient maintained on Nplate as outpatient
-Platelet is on the low side however given her recent ablation and cardioversion attempt will continue Eliquis
-Hgb stable compared to prior
-Monitor for signs of bleeding
-Monitor platelet count. Currently at 61k. Low threshold for Heme input.
Hypothyroidism
-Continue Levothyroxine
[place]/Abd discomfort
-resolved. Tolerating diet.
-CT abd/pelvis negative for acute pathology
-Tigan if needed for nausea however, currently seems to be tolerating diet.
Hx Tachy-Maynor Syndrome s/p Pacemaker
Hx Breast Cancer s/p Right Mastectomy
Mild hyponatremia
resolved
DVT proph: Eliquis
Code Status: Full Code
Anticipated Discharge: Within 24 hours
Subjective/Interval History
-
Date of Service: June 20, 2024
tolerating diet
no nausea or vomiting
no diarrhea
Qtc was prolonged yesterday and sotalol was held
Objective Data
-
Labs:
Laboratory Results
06/20/24
07:06
WBC 5.9
Hgb 12.1
Hct 35.9 L
Plt Count 61 L
Sodium 135
Potassium 4.2
Chloride 100
Carbon Dioxide 28
BUN 19 H
Creatinine 0.7
Glucose 97
Calcium 9.1
Vital Signs:
Vital Signs
Temp Pulse Resp BP Pulse Ox
97.6 F 125 18 137/85 98
06/20/24 07:00 06/20/24 07:00 06/20/24 07:00 06/20/24 07:00 06/20/24 07:00
I&O
06/19/24 06/20/24 06/21/24
06:59 06:59 06:59
Intake Total 960 / 960 960 / 960
Balance 960 / 960 960 / 960
Physical Exam
-
General: Well Developed and No Apparent Distress
HEENT: Normocephalic, Atraumatic and Moist Mucous Membranes
Respiratory: Clear to Auscultation
Cardiac: S1/S2; Negative Murmur, Rub or Gallop
GI: Soft, Nontender, Nondistended and Normal Bowel Sounds; Negative Organomegaly
Rectal: Deferred by Provider
Musculoskeletal: No Clubbing, No Cyanosis and No Edema
Skin: Negative Rash
Neuro: Awake, Alert, Oriented, AO x 3, No Motor Deficits and Nonfocal/Grossly Intact
Psych: Calm
[2024-06-20 11:00] VITALS: BP 108/67
[2024-06-20] MEDS: VITAMIN C 500 MG PO (11:32)
[2024-06-20] MEDS: VITAMIN D3 (cholecalciferol) 50 MCG PO (11:32)
[2024-06-20] MEDS: TOPROL XL 25 MG PO (12:50)
[2024-06-20 15:00] VITALS: BP 124/53
--- NOTE | 2024-06-20 16:15 | W.PN.UPDATE ---
Update Note
Progress Note Update
Back in to see patient and found her walking the unit with her . Patient denies feeling lightheaded or dizzy. She is tolerating Toprol-XL 25 mg daily. Sotalol has been stopped and we will not restart. Talked with patient and that
the plan is for an office visit next week and recheck ECG and device. If patient's symptoms have improved and overall burden is down on device check then we will continue with Toprol-XL alone. If patient has recurrent symptoms or increased burden
on device check then patient is willing to consider addition of amiodarone while she completes her post ablation healing period. We also discussed that if patient has recurrent A-fib following healing period then AV node ablation is an option as
patient already has PPM in place. Overall stable for discharge and communicated with hospitalist attending via TT. E-scribed Toprol-XL. Office follow-up on discharge instructions.
--- NOTE | 2024-06-20 16:17 | W.DCSUMMARY ---
Discharge Summary
Discharge Data
Date of Admission: 06/18/24
Date of Discharge: 06/20/24
-
Pending Results: No
Hospital Course
78-year-old female past medical history of atrial fibrillation, valvular heart disease, hypertension, ITP, hypothyroidism, history of tachybradycardia syndrome status post pacemaker, history of breast cancer status post mastectomy who is presenting
with complaint of nausea and abdominal discomfort. Patient underwent a CAT scan admission without any acute finding. Patient's symptoms improved. Patient was found to be in atrial fibrillation with rapid ventricular response. Patient received IV
beta-osmar and subsequently was evaluated by cardiology. Patient sotalol dose was increased 160 mg every 12. Patient with elevated QTc on EKG which remained persistent and thus sotalol was held and eventually discontinued. Patient was started
on metoprolol. Patient platelets were stable. Patient blood pressure was elevated and was restarted on hydrochlorothiazide. Patient was ambulating in the hallway without any difficulty. Patient was tolerating diet. Patient GI symptoms resolved.
Patient per discussion with cardiology can be discharged on Toprol with outpatient follow-up with fishing tool technician oil well for further management of atrial fibrillation. All patient questions were answered and she was agreeable amenable to discharge
home.
Discharge Plan
-
Patient Disposition: Home (Routine Discharge)
Discharge Diagnosis/Procedures: Persistent atrial fibrillation with rapid ventricular response status post unsuccessful cardioversion in ER
Nausea, vomiting and diarrhea resolved
Condition: Fair
Diet: Regular
Activity: As tolerated
Driving Restrictions: As prior to admission
Referrals:
Rhett Cyr, DO [Family Provider] - in less than 1 week
Jose Hagan MD [Active] - 06/25/24 8:00 am (You have an appointment to see Dr. Christopher Hagan's nurse practitioner, Larissa, at the [facility] office on 06/25/2024 at 8 AM. Please call [phone] if you need to reschedule)
Additional Discharge Medication Instructions: -Stop taking sotalol
-Start taking Toprol-XL (metoprolol succinate) 25 mg once a day
Prescriptions:
New
metoprolol succinate [Toprol XL] 25 mg tablet extended release 24 hr
25 mg PO DAILY Qty: 30 11RF
Continued
amitriptyline 25 MG tablet
12.5 mg PO HS
ascorbic acid (vitamin C) [Vitamin C] 500 MG tablet
500 mg PO NOON
hydrochlorothiazide 25 MG tablet
12.5 mg PO QPM
levothyroxine 75 mcg Tablet
75 mcg PO DAILY
ferrous sulfate [Iron (ferrous sulfate)] 325 mg (65 mg iron) Tablet
325 mg PO QPM
cholecalciferol (vitamin D3) 50 mcg (2,000 unit) Tablet
50 mcg PO NOON
romiplostim 500 mcg Recon Soln
71.6 mcg SC Q2W Qty: 0
vitamin B complex Tablet
1 tab PO QPM
Eliquis 5 mg tablet
5 mg PO BID Qty: 60 6RF
calcium carbonate [Calcium 600] 600 mg calcium (1,500 mg) Tablet
600 mg PO DAILY
calcium carbonate [Tums] 200 mg calcium (500 mg) Tablet,Chewable
200 mg PO BIDPRN PRN (Reason: GERD)
bismuth subsalicylate [Pepto-Bismol] 262 mg Tablet,Chewable
2 tab PO BIDPRN PRN (Reason: gerd)
zolpidem [Ambien CR] 6.25 mg Tablet,Ext Release Multiphase
3.125 mg PO HSPRN PRN (Reason: sleep)
Discontinued
sotalol 120 mg Tablet
120 mg PO BID
Discharge Orders:
Discharge Patient (As Directed); Ordered 06/20/24
Ordered By: Frankie Aguilar
Discharge Date and Time
Discharge Date/Time: 06/20/24 17:12
Print Language: THAI
== END 2024-06-20 17:12 | disposition home or self-care (01) | DRG 309 ==
LOC: 4 WEST ACU 13:33
PROVIDERS: Physician Assistant Medical; Student in an Organized Health Care Education/Training Program; ADMITTING PHYSICIAN Hospitalist; ATTENDING PHYSICIAN Hospitalist; EMERGENCY PHYSICIAN Emergency Medicine; FAMILY PHYSICIAN Family Medicine; OTHER PHYSICIAN Nuclear Medicine Nuclear Cardiology
PROC: 5A2204Z Restoration of Cardiac Rhythm, Single (ICD-10-PCS; 2024-06-18)
DX: I48.19 Other persistent atrial fibrillation (principal); D69.3 Immune thrombocytopenic purpura; E87.1 Hypo-osmolality and hyponatremia; I49.5 Sick sinus syndrome; I10 Essential (primary) hypertension; A08.4 Viral intestinal infection, unspecified; E03.9 Hypothyroidism, unspecified; G47.00 Insomnia, unspecified; G47.33 Obstructive sleep apnea (adult) (pediatric); I27.20 Pulmonary hypertension, unspecified; K21.9 Gastro-esophageal reflux disease without esophagitis; I35.1 Nonrheumatic aortic (valve) insufficiency; Z95.0 Presence of cardiac pacemaker; Z91.041 Radiographic dye allergy status; Z85.3 Personal history of malignant neoplasm of breast; Z79.890 Hormone replacement therapy; Z79.01 Long term (current) use of anticoagulants; Z88.0 Allergy status to penicillin; Z88.5 Allergy status to narcotic agent
CPT/HCPCS: 71045; 74176; 80048; 80053; 83690; 83735; 84443; 84484; 85025; 85027; 92960; 93005; 96361; 96375; 96376; 99285

== ENCOUNTER 2024-06-28 11:07 | Day surgery (SDC) | payer MEDICARE, OTHER, SELFPAY ==
--- NOTE | 2024-06-28 12:38 | ITS.CL.CARDI ---
[employer] Air[employer] Control Officer - Cardioversion
Cardioversion
Procedure Report:
Date of Procedure: 06/28/24
Procedure: Cardioversion
Indication: Symptomatic atrial tachycardia
Performing Physician: Salvatore Timmons MD
Technique: The patient was brought to the holding area. Signed informed consent was obtained. A time out was called and performed. The patient was anesthetized by the anesthesia service. Anticoagulation status was reviewed and appropriate. R2 pads
were placed anteriorly and posteriorly. A 200 J and 360J synchronized biphasic shock failed to restore sinus rhythm. There were no complications.
Conclusion: Failed cardioversion. Remains in atrial tachycardia
Recommendation: Increase Metoprolol and continue Amiodarone. Consider repeat CV after Amiodarone load. Continue correction anticoagulation.
== END 2024-06-28 13:13 ==
LOC: CATH 11:07
PROVIDERS: ATTENDING PHYSICIAN Internal Medicine Cardiovascular Disease; FAMILY PHYSICIAN Family Medicine; OTHER PHYSICIAN Internal Medicine Cardiovascular Disease
DX: I47.19 Other supraventricular tachycardia (principal); I48.19 Other persistent atrial fibrillation; I45.2 Bifascicular block; I10 Essential (primary) hypertension; E03.9 Hypothyroidism, unspecified; G47.33 Obstructive sleep apnea (adult) (pediatric); Z95.0 Presence of cardiac pacemaker; Z85.3 Personal history of malignant neoplasm of breast; Z79.01 Long term (current) use of anticoagulants
CPT/HCPCS: 92960; 93005

== ENCOUNTER → 2024-07-30 11:16 | Outpatient (REF) | payer MEDICARE, OTHER, SELFPAY ==
[2024-07-30 13:04] LABS: % Basophils 0.8 % (0-2); % Immature Granulocytes 0.2 % (0-0.5); % Lymphocytes 24.6 % (20.5-51.1); % Monocytes 6.8 % (1.7-9.3); % Neutrophils 66.6 % (42.2-75.2); Absolute Eosinophils 0.1 10^3/uL (0-0.7); Absolute Lymphocytes 1.2 10^3/uL (1.2-3.4); Absolute Monocytes 0.3 10^3/uL (0.1-0.6); Absolute Neutrophils 3.3 10^3/uL (1.4-6.5); Hematocrit 39.3 % (37.0-47.0); Mean Corp Hgb Conc. 33.1 g/dL (33.0-37.0); Mean Corpuscular Hgb 30.7 pg (27.0-31.0); Mean Corpuscular Volume 92.9 fL (81.0-99.0); Mean Platelet Volume 11.9 fL (7.4-10.4); Nucleated Red Blood Cells % 0 %; Platelet Count 83 10^3/uL (130-400); Red Blood Cell Count 4.23 10^6/uL (4.20-5.40); Red Cell Dist. Width 13.9 % (11.5-14.5)
[2024-07-30 13:08] LABS: PT 14.5 Sec (11.4-14.6)
[2024-07-30 13:12] LABS: ALT (SGPT) 25 U/L (0-35); AST (SGOT) 33 U/L (14-36); Albumin 4.3 g/dl (3.5-5.0); Alkaline Phosphatase 63 U/L (38-126); Blood Urea Nitrogen 16 mg/dl (7-17); Carbon Dioxide 32 mmol/L (22-30); Chloride 94 mmol/L (98-107); Glucose 75 mg/dl (70-99); Magnesium 1.9 mg/dl (1.6-2.3); Sodium 134 mmol/L (135-145); Total Protein 6.7 g/dl (6.3-8.2); eGFR > 60.00
[2024-07-30 13:21] LABS: NT-proBNP 1740 pg/ml
== END ==
LOC: SDSPAT 11:16
PROVIDERS: ATTENDING PHYSICIAN Internal Medicine Cardiovascular Disease; FAMILY PHYSICIAN Family Medicine
DX: I47.19 Other supraventricular tachycardia (principal)
CPT/HCPCS: 36415; 71046; 80053; 83735; 83880; 85025; 85610; 93005

== ENCOUNTER 2024-08-08 12:57 | Inpatient (IN) | payer MEDICARE, OTHER, SELFPAY ==
[2024-08-08] VITALS (18 sets, daily range): BP systolic 94–136; BP diastolic 50–90; BMI 24.3; BMI 25.3
--- NOTE | 2024-08-08 06:47 | ED.GENMED ---
History of Present Illness
General
Chief Complaint: Heart Rate Problem
Source: patient
Exam Limitations: none
Time Seen by Provider: 08/08/24 06:37
Nursing documentation reviewed up to this point in time: agreed with
History of Present Illness
History of Present Illness:
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
persistent tachycardia despite medication adjustments as outpatient, along with 'not feeling well'. Patient reports headache and nausea sensation. Patient has been off Eliquis since end of June, at the recommendation of her caustic room attendant, due to
history of thrombocytopenia. Denies difficulty with speech or swallowing. Denies blurred vision. Denies loss of sensation or weakness. Denies difficulty with ambulation.
Review of Systems
Review of Systems
Allergies reviewed?: Yes
All Other Systems: ROS reviewed and negative except as documented in HPI and ROS
Constitutional: Reports no symptoms; Denies fever
Respiratory: Reports no symptoms; Denies trouble breathing
Cardiac: Reports palpitations; Denies chest pain
ABD/GI: Reports nausea; Denies abdominal pain or vomiting
Musculoskeletal: Reports no symptoms
Skin: Reports no symptoms
Neurological: Reports dizzy, headache and weakness
Phy Exam
Physical Exam
Physical Exam:
Physical Exam
General: mild distress, appears uncomfortable. afebrile
Head: nc/at. eomi
Neck: supple. no meningeal signs.
Heart: irregular irregular, tachycardic, no murmur. equal radial pulses.
Lungs: no acute respiratory distress. clear bilaterally
Abdomen: normal bowel sounds. not tender.
Neuro: alert and oriented x 3. no focal neurological deficits. normal speech
Skin: no rash
Psychiatric: well kept. interactive and cooperative
Extremities: no edema. no calf tenderness
Course
Orders/Labs/Results
Orders:
Orders
08/08/24 06:32
EKG [Electrocardiogram (*1)] Urgent
Reason for Study: Tachycardia
EKG- Treatment ONCE
08/08/24 06:57
CT Head W/o Iv Contrast Urgent
Comment:
Reason For Exam: headache/dizziness
0.9% Sodium Chloride 250 ml [Nss] 250 ml IV BOLUS
Diltiazem HCl [Cardizem] 10 mg IV NOW STA
08/08/24 06:58
Acetaminophen [Tylenol] 650 mg PO NOW STA
Ondansetron Injectable [Zofran] 4 mg IV NOW STA
08/08/24 07:00
Acetaminophen [Tylenol] 650 mg .ROUTE .STK-MED ONE
Diltiazem 125 mg/125 ml Nss [Cardizem] 125 mg in 125 ml IV PER PROTOCOL
Initial dose in mg/hr, then titrate:: 5
Titrate to keep:: Heart rate 80-100 bpm
Titrate by mg/hr:: 5 mg/hr
Frequency of titrations (minutes):: 15
Maximum dose in mg/hr:: 15
08/08/24 07:02
Lorazepam [Ativan] 0.5 mg IV NOW STA
08/08/24 07:28
CARDIOLOGY CONSULT Urgent
Consulting Provider: Cori Swenson
Was physician already notified: Yes
Reason for consult: a.fib
08/08/24 07:45
Complete Blood Count/With Diff Urgent
Comprehensive Metabolic Panel Urgent
Magnesium Urgent
NT-proBNP Urgent
Comment: ADD ON
TSH Urgent
08/08/24 08:21
Ketorolac [Toradol] 15 mg IV NOW STA
diazePAM [Valium Injection] 2 mg IV NOW STA
08/08/24 09:56
HydrOXYZINE [Atarax] 25 mg PO NOW STA
08/08/24 09:58
Furosemide [Lasix] 20 mg IV NOW STA
08/08/24 Lunch
Sodium, 4 Gram (SONYA)
At Your Request: Full Participation
Does patient need a safe tray?: No
08/08/24 12:27
Code Status As Directed
Resuscitation Status: Full Code
Bisacodyl [Dulcolax] 10 mg RECTAL [id number] PRN
Docusate W/Senna [Senokot-S] 1 tablet PO BIDPRN PRN
Polyethylene Glycol Powder [Miralax] 17 grams PO DAILYPRN PRN
Intake/ Output As Directed
Frequency: Per unit guidelines
Weight As Directed
Frequency: Daily
Type of Scale: Standing Scale
08/08/24 12:29
Activity As Directed
Activity Level: Ambulate
Bathroom Privileges
Vital Signs As Directed
Frequency: Per unit guidelines
08/08/24 12:34
Venous Foot Pumps As Directed
Location: Bilateral feet
Frequency: While in bed
DX Deep Vein Thrombosis Video Routine
08/08/24 12:35
Admit/Transfer Patient As Directed
Co-Sign Provider:
Level of Care: Inpatient admission
Assign to:: IVU
Physician / Group: ESTHER, Leela
Diagnosis: uncontrolled atrial fibrillation , concern for heart failure
Reason for Hospitalization: uncontrolled atrial fibrillation , concern for heart failure
Expected length of stay greater than two midnights?: Yes
ELOS- Estimated Length of Stay in days: 2
I certify the patient meets the requirements for IP care: Yes
08/08/24 12:40
CXR2 [CR Chest - 2 Views ] Urgent
Comment:
Reason For Exam: SOB, concern for heart failure
08/08/24 18:00
Vitamin B Complex with C [B COMPLEX w/VITAMIN C] 1 caplet PO QPM
08/08/24 20:00
Metoprolol Xl [Toprol Xl] 25 mg PO BID
08/09/24 04:54
Basic Metabolic Panel IN AM
Complete Blood Count/With Diff IN AM
Magnesium IN AM
08/09/24 06:00
Electrocardiogram (*1) IN AM
Reason for Study: Atrial Fibrillation
NPO
Allow oral meds: Yes
Allow clear liquids: No
Levothyroxine [Synthroid] 75 mcg PO DAILY @ 0600
08/09/24 12:00
Ascorbic Acid [Vitamin C] 500 mg PO NOON
Ferrous Sulfate [Feosol] 325 mg PO NOON
Abnormal Lab Results
08/08/24
07:45
RBC 4.05 L 10^6/uL
(4.20-5.40)
Hct 36.5 L %
(37.0-47.0)
Plt Count 73 L 10^3/uL
(130-400)
MPV 10.6 H fL
(7.4-10.4)
Absolute Lymphs (auto) 1.1 L 10^3/uL
(1.2-3.4)
Lymphocytes % 18.3 L %
(20.5-51.1)
Sodium 131 L mmol/L
(135-145)
Chloride 97 L mmol/L
(98-107)
Glucose 118 H mg/dl
(70-99)
AST 38 H U/L
(14-36)
08/08/24 07:45
08/08/24 07:45
Vital Signs
Initial and Last Documented VS:
Initial Vital Signs
Temp Pulse Resp BP Pulse Ox
97.7 F 116 18 136/90 99
08/08/24 06:29 08/08/24 06:29 08/08/24 06:29 08/08/24 06:29 08/08/24 06:29
Last Documented Vital Signs
Temp Pulse Resp BP Pulse Ox
97.3 F 72 16 96/63 95
08/09/24 11:42 08/09/24 10:15 08/09/24 11:42 08/09/24 10:00 08/09/24 11:42
MDM/Problems Addressed
MDM/Problems Addressed:
Pt started on cardizem gtt for rate control with improvement
Patient evaluated in ED by cardiology (Dr. Swenson) - will admit for further evaluation and treatment, i.e. potential cardiac ablation.
*EKG
Interpreted by ED Provider?: Yes
EKG Intrepretation Date: 08/08/24
Heart Rate: 119
Rate: tachycardiac
Rhythm: a-fib
[place]: normal axis
*Critical Care Note
Total Time (30-74mins, 75-104mins- exclusive of procedures): 30 min
ED Attending Note
-
Portions of this chart may have been created with voice recognition software.� Occasional wrong word or��sound alike� substitutions may have occurred due to the inherent limitations of voice recognition software.
Discharge Plan
Departure
Patient Disposition: Admit
Date of Disposition: 08/08/24
Time of Disposition: 12:18
Presentation/result/management discussed w/ accepting MD/DO:
Discharge Problem:
Atrial fibrillation
Interventions
Interventions:
*Risk Screen - Suicide Last Done: 08/08/24 06:29
*General Assessment Last Done: 08/08/24 07:52
*Neglect/Abuse Screening Last Done: 08/08/24 07:52
*ED- Fall Risk Assessment Last Done: 08/08/24 07:52
*ED COVID-19 Vaccine History Last Done: 08/08/24 07:52
*Nursing Disposition Last Done: 08/08/24 17:53
ED- Cardiac Assessment Last Done: 08/08/24 07:50
ED- Pulmonary Assessment Last Done: 08/08/24 07:50
Discharge Date and Time
Discharge Date/Time: 08/08/24 17:53
[2024-08-08] MEDS: TYLENOL 650 MG PO (07:22)
[2024-08-08] MEDS: NSS 250 IV (07:29)
[2024-08-08] MEDS: CARDIZEM 10 MG IV (07:29)
[2024-08-08] MEDS: ZOFRAN 4 MG IV (07:29)
[2024-08-08] MEDS: ATIVAN 0.5 MG IV (07:41)
[2024-08-08] MEDS: CARDIZEM 125 IV (07:43)
[2024-08-08 08:07] LABS: % Basophils 0.3 % (0-2); % Immature Granulocytes 0.3 % (0-0.5); % Lymphocytes 18.3 % (20.5-51.1); % Monocytes 4.9 % (1.7-9.3); % Neutrophils 75.2 % (42.2-75.2); Absolute Eosinophils 0.1 10^3/uL (0-0.7); Absolute Lymphocytes 1.1 10^3/uL (1.2-3.4); Absolute Monocytes 0.3 10^3/uL (0.1-0.6); Absolute Neutrophils 4.6 10^3/uL (1.4-6.5); Hematocrit 36.5 % (37.0-47.0); Hemoglobin 12.4 g/dL (12.0-16.0); Mean Corpuscular Hgb 30.6 pg (27.0-31.0); Mean Corpuscular Volume 90.1 fL (81.0-99.0); Mean Platelet Volume 10.6 fL (7.4-10.4); Nucleated Red Blood Cells % 0 %; Platelet Count 73 10^3/uL (130-400); Red Blood Cell Count 4.05 10^6/uL (4.20-5.40); Red Cell Dist. Width 13.7 % (11.5-14.5); White Blood Cell Count 6.1 10^3/uL (4.8-10.8)
[2024-08-08 08:11] LABS: ALT (SGPT) 25 U/L (0-35); AST (SGOT) 38 U/L (14-36); Albumin 4.1 g/dl (3.5-5.0); Alkaline Phosphatase 67 U/L (38-126); Blood Urea Nitrogen 14 mg/dl (7-17); Calcium 9.1 mg/dl (8.4-10.2); Carbon Dioxide 27 mmol/L (22-30); Chloride 97 mmol/L (98-107); Estimated Creatinine Clearance 77 ml/min; Glucose 118 mg/dl (70-99); Magnesium 1.8 mg/dl (1.6-2.3); Potassium 3.8 mmol/L (3.5-5.1); Sodium 131 mmol/L (135-145); Total Bilirubin 1.3 mg/dl (0.2-1.3); Total Protein 7.1 g/dl (6.3-8.2); eGFR > 60.00
--- NOTE | 2024-08-08 08:23 | CON.CAR ---
Addendum entered and electronically signed by CINTIA Harkins 08/13/24 17:37:
pt admitted with Acute HFpEF
Addendum entered and electronically signed by Hugo Mixon MD 08/08/24 15:48:
Patient seen and examined
Agree with CINTIA Ruffin's note and assessment
Reviewed and agree with plan
Discussed with the patient's outpatient zoning technician Dr. Hagan
Originally scheduled for next Monday for AVJ ablation but has had ongoing heart racing, increase in weight and increased edema over the past 7 to 10 days. She failed cardioversion on amiodarone therapy
����Physical Exam
���������������������General:��no apparent distress, not acutely ill
���������������������������Neck:��supple. no meningeal signs. normal psoterior pharynx. JVP 7
���������������������������Heart:��s1/s2 regular rate and rhythm, tachycardic and regular, no murmur. equal radial pulses.
��������������������������Lungs: ��no acute respiratory distress. clear bilaterally
����������������������Abdomen:�normal bowel sounds. not tender. no CVAT
��������������������������Neuro:��alert and oriented. no focal neurological deficits
������������������������������Skin: ��no rash
�����������������������Psychiatric:�well kept. interactive and cooperative
�����������������������Extremities:�1+ edema to mid calf edema. no calf tenderness. negative homans. good distal pulses
Primary care: Dr Rhett Cyr
Primary director targeted marketing: Dr Dean Cantrell
Primary cards: Dr. Christopher Hagan
Impression:
Presented to ER with shortness of breath/orthopnea, weight gain, tachycardia, generalized feeling unwell on 08/08/2024
Persistent A-fib with RVR, s/p unsuccessful CV in ER 06/18/2024
Previously paroxysmal now more persistent A-fib
s/p PVI 2020
s/p PFA/PVI 05/20/2024
Unsuccessful CV in ED 06/18/2024
Unsuccessful cardioversion 06/28/2024 after initiation of amiodaronePreviously on chronic sotalol, stopped 05/2024 due to prolonged QT
Not on chronic oral anticoagulation due to history of ITP with propensity towards thrombocytopenia. Did tolerate 2 months of Xarelto post ablation April 2024, now off
[employer] DC PPM
Thrombocytopenia
ITP
Mod-severe MR
Moderate mitral stenosis
Moderate
Mild to moderate AI
Severe TR with moderate to severe pulmonary hypertension, PAP 55 to 60 mmHg echo 12/2023
Hypothyroid
LATRICE
HTN
R breast CA, s/p mastectomy 1980
Echo 01/08/2024: EF 55 to 60%, mild MS with mean gradient 5 mmHg, mild to moderate eccentric MR, moderate AAS peak/mean 18/12 mmHg and RAMSES 0.8 cm SQ, mild to moderate aortic regurgitation, severe TR with moderate to severe PHTN and PAP 55 to 60 mmHg
JUDIE 05/20/2024: Normal BiV size and function without WMA, no evidence of spontaneous echo contrast or thrombus in the RA or LA/BRANDON, moderate MS
Plan:
- Will tentatively schedule AVJ ablation for August 09, 2024. Will keep n.p.o. after midnight for tomorrow and reassess volume status in the a.m. Discussed with outpatient zoning technician Dr. Hagan
- IV Lasix for volume overload
-Check echo
- check proBNP
-Lasix 20 mg IV now
-daily wts, I/O
-Started on diltiazem for rate control. Continue Toprol as BP tolerates
-Not on oral anticoagulation due to longstanding history of ITP with propensity towards thrombocytopenia. Tolerated 2 months OAC post ablation (initially on Eliquis, switched to Xarelto for cost reasons). Platelet count [id number] today 08/08/2024, as
low as 40,000 on 06/18/2024, but improved to 51,000 on 06/19/2024 and then 61,000 on 06/20/2024.
-Received Romiplastin yesterday, gets dose every 2 weeks through hematology, Dr Cantrell
-Telemetry personally reviewed: V pacing 70s alternating with bursts AT vs afib. Will have device interrogate to assess arrhythmias burden. [employer] aware.
Addendum entered and electronically signed by CINTIA Harkins 08/08/24 13:25:
.
Original Note:
Consultation
Consultation Request
Date/Time Consultation Requested: tachycardia, fatigue
Date/Time Consultation Performed: 08/08/2024, 0800
Requesting Provider: Dr Wagoner
Performing Provider: CINTIA Harkins for Dr. Durbin
Reason for Consultation: afib
Medical History
-
Chief Complaint: tachycardia
History of Present Illness:
Patient is a 78-year-old female with a longstanding history of atrial arrhythmias including atrial fibrillation and atrial tachycardia. Also with history of ITP with propensity towards severe thrombocytopenia (under the care of Dr. Cantrell
regarding her ITP/thrombocytopenia and receives Romiplastin N-plate injections every other week), RBBB, history of breast cancer, , mixed valvular heart disease, moderate mitral stenosis, moderate MR, moderate , , severe TR, obstructive sleep
apnea.
She is status post PVI April 2024. 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 Her case is complicated by history of ITP and propensity towards
severe thrombocytopenia. After discussing with her director targeted marketing, it was thought that she could tolerate 2 months of oral anticoagulation. She was not on oral anticoagulation prior to ablation (JUDIE pre-ablation showed no thrombus) and platelets
were 69,000 at time of ablation. She was continued on oral anticoagulation with Xarelto for 2 months post ablation (stopped 07/18/2024). She was continued on sotalol 120 mg twice daily. She re-presented to the ED on 06/18/2024 with rapid heart rate
and was found to be in A-fib with RVR. Cardioversion was attempted with 200, 300, and 360 J shocks which which were all unsuccessful and she remained in A-fib. She was admitted admitted and sotalol uptitrated to 160 mg twice daily however she
developed QT prolongation and sotalol was stopped. She was started on Toprol 25 mg daily. She was seen in the office on 06/27/2024 and was in atrial tachycardia at 136 bpm. Pacemaker interrogation showed 50% atrial tachycardia burden with heart
rates 110s to 150s. She was in A-fib less than 1% of the time. She was started on Amiodarone 200 mg twice daily with intention to continue it through the post-ablation healing period, and she underwent cardioversion the following day
(06/29/2024)which was unsuccessful. Given rapid rates and atrial tachycardia and inability to tolerate up titration of AV mark blockers (had brain fog on Cardizem and on higher doses of metoprolol) AV mark ablation was advised and is scheduled for
08/15/2024. Of note Xarelto was stopped 2 months post ablation on 07/18/2024. She complained of nausea and dizziness as well as involuntary movements of the legs and cramps in her toes on amiodarone and dose was decreased to 100 mg daily with no
improvement in symptoms. She also developed a dry cough. Amiodarone was stopped on 07/29/2024 and metoprolol was increased to 25 mg twice daily. There was concern that she was volume overloaded and she was started on Lasix 20 mg daily.Outpatient
chest x-ray 07/30/2024 showed mild cardiomegaly with no evidence of pulmonary edema. proBNP 07/30/2024 was 1740.
She presents to the ED today with complaints of tachycardia, and generally not feeling well. Complains of headache and nausea. Weight up 7 pounds in past couple weeks, developed lower extremity edema. Unable to sleep past 2 nights due to
orthopnea.
ED evaluation:
EKG: A-fib with right bundle branch block alternating with V pacing. Her [employer] pacemaker will be interrogated to assess arrhythmia burden.
Head CT: No acute intercranial abnormality
Hemoglobin 12.4, platelets 73, NA 131, K3.8, BUN/creatinine 14/0.6, mag 1.8, TSH 4.5
Patient has a known history of paroxysmal A-fib and previously had a PVI in 2020 which patient describes as waking up from ablation and feeling fantastic. At that time though the patient remained in the hospital for sotalol loading post PVI, but
this was previously planned and patient had QT prolongation on 120 mg BID so dose was lowered to 80 mg BID and QT was stable. Patient recurred with palpitations about 6 months ago which were short bursts of atrial tachycardia and A-fib with the
longest duration being 10 minutes. There were initial attempts to add Toprol-XL and then later Cardizem CD, but these made the patient feel fatigued. Her sotalol was continued throughout and dose was eventually increased to 120 mg BID. After
talking with her Heme/Onc they felt as though she could tolerate a short course of Eliquis and so the plan was made to pursue repeat ablation and continue sotalol post ablation. Patient had preablation JUDIE 05/20/2024 and then had planned PFA/PVI
ablation 05/20/2024. At the end of the procedure the patient's [employer] DC PPM was reprogrammed to DDDR at 70-130. Patient feels a slow she has been in A-fib since the time of ablation with complaints of chest pounding with activity and
generalized fatigue. In the last 24 hours patient started with N/V/D and came to ER with the constellation of symptoms as noted. Patient was found to be in A-fib with RVR and there was an attempted CV with 200 J then 300 J then 360 J all of
which were unsuccessful and patient remains in A-fib. Cardiology is now consulted. Patient denies PND or orthopnea. Patient denies LE edema. No CP.
PMH:
Previously paroxysmal now more persistent A-fib
s/p PVI 2020
s/p PFA/PVI 05/20/2024
Failed cardioversion in ED 06/18/2024
Failed cardioversion after initiation of amiodarone on 06/29/2024
Previously on chronic sotalol, stopped 05/2024 admission due to prolonged QT
Nausea on amiodarone, stopped 07/29/2024
Not on chronic oral anticoagulation due to history of ITP with propensity towards thrombocytopenia. Tolerated 2 months of oral anticoagulation after ablation 05/16/2024
[employer] DC PPM
Thrombocytopenia
ITP
Mod-severe MR
Hypothyroid
LATRICE
HTN
R breast CA, s/p mastectomy 1979
Past Medical History
Past Medical History: Other (in HPI)
Past Surgical History: Cardiac ([employer] PPM 2015, s/p PVI 2020, s/p PFA/PVI 05/20/24) and Gynecological (right mastectomy)
Social History
Tobacco: Non-Smoker
Alcohol: Occasional
Drug: None
Personal:
Living: With Family
Family History
Family History: Other (father had valve replacement)
Allergies / Home Medications
Allergy/AdvReac Type Severity Reaction Status Date / Time
adhesive Allergy Itching Verified 08/08/24 06:28
amoxicillin [From Augmentin] Allergy stomach Verified 08/08/24 06:28
cramps
clavulanic acid Allergy stomach Verified 08/08/24 06:28
[From Augmentin] cramps
codeine Allergy can't Verified 08/08/24 06:28
function
and nausea
Iodinated Contrast Media Allergy Tachycardia Verified 08/08/24 06:28
and hives
prednisone Allergy palpitations, Verified 08/08/24 06:28
diarrhea,
cough,
fluid
retention,
pain, dizzy
�Medication �Instructions �Recorded �Confirmed �Type
ascorbic acid (vitamin C) 500 mg 500 mg PO NOON Supplement 05/15/20 07/25/24 History
tablet (Vitamin C)
ferrous sulfate 325 mg (65 mg 325 mg PO QPM Supplement 01/11/23 07/25/24 History
iron) tablet (Iron (ferrous
sulfate))
levothyroxine 75 mcg tablet 75 mcg PO DAILY Thyroid 01/11/23 07/25/24 History
vitamin B complex 1 tab PO QPM Supplement 05/20/24 07/25/24 History
calcium 500 mg (as 1 tab PO DAILY 07/25/24 07/25/24 History
carbonate)-vitamin D3 3.125 mcg
(125 unit) tablet
lorazepam 0.5 mg tablet 1 mg PO HS sleep 07/25/24 07/30/24 History
furosemide 20 mg tablet 10 mg PO BID 07/30/24 07/30/24 History
meclizine 25 mg tablet 25 mg PO TIDPRN PRN dizziness 07/30/24 07/30/24 History
metoprolol succinate 25 mg 25 mg PO BID Arrhythmia 07/30/24 07/30/24 History
tablet,extended release 24 hr
(Toprol XL)
Review of Systems
-
History Source: Patient and Family ()
Physical Exam
Vital Signs
Temp Pulse Resp BP Pulse Ox
97.7 F 117 25 136/90 97
08/08/24 06:29 08/08/24 07:45 08/08/24 07:45 08/08/24 06:29 08/08/24 07:15
Lab Results
08/08/24 07:45
08/08/24 07:45
GEN: No distress, awake, Ox3
HEENT: supple, anicteric, mmm
LUNGS: Decreased breath sounds right base
CV: Reg, S1/S2, 2/6 syst murmur heard throughout precordium
ABD: soft, BS+, NT/ND
EXT: 1+ bilateral lower extremity edema to knees
NEURO: Gross non-focal
SKIN: No rash
Impression / Plan
-
Primary care: Dr Rhett Cyr
Primary director targeted marketing: Dr Dean Cantrell
Primary cards: Dr. Christopher Hagan
Impression:
Presented to ER with shortness of breath/orthopnea, weight gain, tachycardia, generalized feeling unwell on 08/08/2024
Persistent A-fib with RVR, s/p unsuccessful CV in ER 06/18/2024
Previously paroxysmal now more persistent A-fib
s/p PVI 2020
s/p PFA/PVI 05/20/2024
Unsuccessful CV in ED 06/18/2024
Unsuccessful cardioversion 06/28/2024 after initiation of amiodarone
Previously on chronic sotalol, stopped 05/2024 due to prolonged QT
Not on chronic oral anticoagulation due to history of ITP with propensity towards thrombocytopenia. Did tolerate 2 months of Xarelto post ablation April 2024, now off
[employer] DC PPM
Thrombocytopenia
ITP
Mod-severe MR
Moderate mitral stenosis
Moderate
Mild to moderate AI
Severe TR with moderate to severe pulmonary hypertension, PAP 55 to 60 mmHg echo 12/2023
Hypothyroid
LATRICE
HTN
R breast CA, s/p mastectomy 1979
Echo 01/08/2024: EF 55 to 60%, mild MS with mean gradient 5 mmHg, mild to moderate eccentric MR, moderate AAS peak/mean 18/12 mmHg and RAMSES 0.8 cm SQ, mild to moderate aortic regurgitation, severe TR with moderate to severe PHTN and PAP 55 to 60 mmHg
JUDIE 05/20/2024: Normal BiV size and function without WMA, no evidence of spontaneous echo contrast or thrombus in the RA or LA/BRANDON, moderate MS
Plan:
-Scheduled for AV mark ablation on 08/15/24, but will move up to tomorrow given symptoms
-Status post PVI April 2024 with continued atrial tachycardia with RVR in outpatient setting. Failed 2 cardioversions since ablation. Failed sotalol due to prolonged QTc. Intolerant of amiodarone due to side effects. Because of this, AV mark
ablation has been planned. Patient has dual-chamber [employer] pacemaker with generator change in 2022.
-Feeling poorly, Presents today, 08/08/2024 with worsening SOB, wt gain (7 lbs in outpt setting), new LE edema. Concern for volume overload
-Check echo
- check proBNP
-Lasix 20 mg IV now
-daily wts, I/O
-Started on diltiazem for rate control. Continue Toprol as BP tolerates
-Not on oral anticoagulation due to longstanding history of ITP with propensity towards thrombocytopenia. Tolerated 2 months OAC post ablation (initially on Eliquis, switched to Xarelto for cost reasons). Platelet count [id number] today 08/08/2024, as
low as 40,000 on 06/18/2024, but improved to 51,000 on 06/19/2024 and then 61,000 on 06/20/2024.
-Received Romiplastin yesterday, gets dose every 2 weeks through hematology, Dr Cantrell
-Telemetry personally reviewed: V pacing 70s alternating with bursts AT vs afib. Will have device interrogate to assess arrhythmias burden. [employer] aware. .
HPI: Patient came to ER today with symptoms of N/V/D and SOB with rapid heart rate during activity and was found to be in A-fib with RVR and cardiology is now consulted. Patient has a known history of paroxysmal A-fib and previously had a PVI in
2020 which patient describes as waking up from ablation and feeling fantastic. At that time though the patient remained in the hospital for sotalol loading post PVI, but this was previously planned and patient had QT prolongation on 120 mg BID so
dose was lowered to 80 mg BID and QT was stable. Patient recurred with palpitations about 6 months ago which were short bursts of atrial tachycardia and A-fib with the longest duration being 10 minutes. There were initial attempts to add Toprol-XL
and then later Cardizem CD, but these made the patient feel fatigued. Her sotalol was continued throughout and dose was eventually increased to 120 mg BID. After talking with her Heme/Onc they felt as though she could tolerate a short course of
Eliquis and so the plan was made to pursue repeat ablation and continue sotalol post ablation. Patient had preablation JUDIE 05/20/2024 and then had planned PFA/PVI ablation 05/20/2024. At the end of the procedure the patient's [employer] DC
PPM was reprogrammed to DDDR at 70-130. Patient feels a slow she has been in A-fib since the time of ablation with complaints of chest pounding with activity and generalized fatigue. In the last 24 hours patient started with N/V/D and came to
ER with the constellation of symptoms as noted. Patient was found to be in A-fib with RVR and there was an attempted CV with 200 J then 300 J then 360 J all of which were unsuccessful and patient remains in A-fib. Cardiology is now consulted.
Patient denies PND or orthopnea. Patient denies LE edema. No CP.
Data Reviewed
-
EKG: Tracing Personally Visualized and interpreted
Labs: Labs Reviewed by me
[2024-08-08] MEDS: TORADOL 15 MG IV (08:30)
[2024-08-08] MEDS: VALIUM INJECTION 2 MG IV (08:31)
[2024-08-08 08:40] LABS: TSH 4.51 uIU/ml (0.47-4.68)
[2024-08-08] MEDS: ATARAX 25 MG PO (10:01)
[2024-08-08] MEDS: LASIX 20 MG IV (10:30)
[2024-08-08 11:25] LABS: NT-proBNP 1850 pg/ml
--- NOTE | 2024-08-08 15:41 | W.CARD.DEVCH ---
Cardiac Device Check
-
Device: Pacemaker
Diploma Maker: [email or web address]
The patient's device was interrogated with assistance of the device sales solutions representative followed by a complete physician review. The device had normal function.
No VT or A-fib (rate detection for A-fib is 140) since last check on 07/29/2024. She is having short runs of atrial tachycardia. A paced 25%, V paced 18%
Device rep Srikanth made atrial sensitivity more sensitive as there was periodic atrial under sensing as well as blanking period.
Battery longevity 6.5 years.
[2024-08-08] MEDS: B COMPLEX w/VITAMIN C 1 CAPLET PO (18:40)
--- NOTE | 2024-08-08 19:26 | PTCARENOTE ---
Pt admitted from ED on diltiazem infusion at 5mg/hr, telemetry shows paced rhythm . Pt up independently, c/o mild headache. Plan for ablation on
08/09.
[2024-08-08] MEDS: TOPROL XL 25 MG PO (20:18)
[2024-08-08] MEDS: TYLENOL 500 MG PO (22:18)
--- NOTE | 2024-08-08 23:02 | PTCARENOTE ---
Received patient at change of shift. AV paced on the monitor, HR in the 70s. Cardizem running as per protocol, see MAR. NPO midnight. No complaints from pt at this time, call varner within reach.
[2024-08-08] MEDS: ULTRAM 25 MG PO (23:38)
[2024-08-08] MEDS: COMPAZINE 10 MG IV (23:50)
[2024-08-09] VITALS (23 sets, daily range): BP systolic 94–145; BP diastolic 49–122; BMI 25.4
[2024-08-09] MEDS: CARDIZEM 125 IV (05:00)
[2024-08-09] MEDS: SYNTHROID 75 MCG PO (05:00)
[2024-08-09 05:27] LABS: % Basophils 0.9 % (0-2); % Eosinophils 2.1 % (0-6); % Immature Granulocytes 0.4 % (0-0.5); % Lymphocytes 32.8 % (20.5-51.1); % Monocytes 6.6 % (1.7-9.3); % Neutrophils 57.2 % (42.2-75.2); Absolute Basophils 0.1 10^3/uL (0-0.2); Absolute Eosinophils 0.1 10^3/uL (0-0.7); Absolute Lymphocytes 1.7 10^3/uL (1.2-3.4); Absolute Monocytes 0.4 10^3/uL (0.1-0.6); Hematocrit 34.7 % (37.0-47.0); Hemoglobin 11.7 g/dL (12.0-16.0); Mean Corp Hgb Conc. 33.7 g/dL (33.0-37.0); Mean Corpuscular Hgb 30.5 pg (27.0-31.0); Mean Corpuscular Volume 90.4 fL (81.0-99.0); Nucleated Red Blood Cells % 0 %; Red Blood Cell Count 3.84 10^6/uL (4.20-5.40); Red Cell Dist. Width 13.8 % (11.5-14.5); White Blood Cell Count 5.3 10^3/uL (4.8-10.8)
[2024-08-09 05:38] LABS: Blood Urea Nitrogen 24 mg/dl (7-17); Calcium 8.9 mg/dl (8.4-10.2); Carbon Dioxide 24 mmol/L (22-30); Chloride 98 mmol/L (98-107); Estimated Creatinine Clearance 51 ml/min; Glucose 93 mg/dl (70-99); Magnesium 1.9 mg/dl (1.6-2.3); Potassium 3.8 mmol/L (3.5-5.1); Sodium 130 mmol/L (135-145); eGFR > 60.00
[2024-08-09 05:48] LABS: Mean Platelet Volume 11.4 fL (7.4-10.4); Platelet Count 63 10^3/uL (130-400)
[2024-08-09 06:27] LABS: Hepatitis C Antibody Negative (Negative)
--- NOTE | 2024-08-09 08:30 | W.PN.CARDCBS ---
Addendum entered and electronically signed by CINTIA Harkins 08/13/24 17:41:
Added to Impression:
Hyponatremia
Addendum entered and electronically signed by CINTIA Harkins 08/13/24 17:38:
Add to Impression:
Acute HF preserved EF
Addendum entered and electronically signed by Madan Israel DO 08/09/24 13:34:
I saw and examined the patient.
The Lead Relay Tester's note was reviewed and I agree with the note.
Comment:
A/P as below
Patient with symptomatic atrial arrhythmias (atrial tachycardia) with difficult to control heart rates and inability to tolerate antiarrhythmic medical therapy who presented with symptomatic atrial tachycardia and evidence of heart failure with
preserved ejection fraction. Patient previously discussed with her outpatient software engineering specialist regarding plan scheduled AVJ ablation for rate control strategy in the setting of her symptomatic atrial arrhythmias which had been scheduled for 08/15/2024
and had prior discussion regarding procedure benefits/risks/alternatives. However, due to patient's volume overload and significant symptoms, patient proceeded to emergency department. In the setting of her difficulty control heart rate inability
to tolerate other medical therapy along with volume overload/heart failure, patient to undergo AVJ ablation today. Regarding risk for ablation, we discussed a 1:1000 risk of W[place]/stroke/ and a 1% risk of damage to chronic device, vascular
injury, or phrenic nerve injury, or tamponade. I took time to answer all questions. Patient remains NPO.
Original Note:
Today's Communication / Plan
-
-for AV mark ablation today
-cont diuresis
Impression / Plan
-
Primary care: Dr Rhett Cyr
Primary cottrell blower: Dr Dean Cantrell
Primary cards: Dr. Christopher Hagan
Impression:
Presented to ER 08/08/2024 with shortness of breath/orthopnea, weight gain, rapid HR, generalized feeling unwell
paroxysmal AT with RVR, s/p unsuccessful CV in ER 06/18/2024
Previously paroxysmal then more persistent A-fib and AT
s/p PVI 2020
s/p PFA/PVI 05/20/2024
Unsuccessful CV in ED 06/18/2024 for AT
Unsuccessful cardioversion for AT 06/28/2024 after initiation of amiodarone
Previously on chronic sotalol, stopped 05/2024 due to prolonged QT
Not on chronic oral anticoagulation due to history of ITP with propensity towards thrombocytopenia. Did tolerate 2 months of OAC post ablation April 2024, now off
[employer] DC PPM
Thrombocytopenia
ITP
Mod-severe MR
Moderate mitral stenosis
Mild
Mild- mod AI
Severe TR with mod-sev pulmonary hypertension, PAP 55 to 60 mmHg echo 12/2023
Hypothyroid
LATRICE
HTN
R breast CA, s/p mastectomy 1979
Echo 01/08/2024: EF 55 to 60%, mild MS with mean gradient 5 mmHg, mild to moderate eccentric MR, moderate AAS peak/mean 18/12 mmHg and RAMSES 0.8 cm SQ, mild to moderate aortic regurgitation, severe TR with moderate to severe PHTN and PAP 55 to 60 mmHg
JUDIE 05/20/2024: Normal BiV size and function without WMA, no evidence of spontaneous echo contrast or thrombus in the RA or LA/BRANDON, moderate MS
Echo 08/08/2024: Normal LV/RV size and function LVEF 55 to 60%, normal LA, moderately dilated RA, mitral annular calcification peak/mean mitral valve gradients 14/15 mmHg, moderate to severe MR, mild (peak/mean 27/15/0 0.9 cm�), severe TR, PAP 30
to 35 mmHg, mild AZ.
Plan:
-Scheduled for elective outpatient AV mark ablation on 08/15/24 due to symptomatic paroxysmal atrial tachycardia, but presented to ED 08/08/2024 with symptoms of volume overload and palpitations. Patient admitted and diuresing and AV mark ablation
moved up to today
-Status post PVI April 2024 with continued atrial tachycardia with RVR in outpatient setting. Failed 2 cardioversions since ablation. Failed sotalol due to prolonged QTc. Intolerant of amiodarone due to side effects. Because of this, AV mark
ablation was been planned. Patient has dual-chamber [employer] pacemaker with generator change in 2022.
-Pacemaker interrogated yesterday 08/08/2024: No VT or A-fib since last check 07/29/2024, short runs of atrial tachycardia
-symptomatic with AT - palps, headaches, weakness, and new LE edema, 7 lb wt gain in outpt setting.
-Echo 08/08/2024 stable- nl LV/RV size and fxn, mod-sev MR, mild , sev TR, PAP 30-35 mmHg (PAP improved from 12/2023 echo)
- cont Lasix 40 mg IV daily
-Started on diltiazem gtt, which has controlled AT and currently in NSR/AV paced. Did not tolerate oral CCB in past ('brain fog') Continue Toprol as BP tolerates
-Not on oral anticoagulation due to longstanding history of ITP with propensity towards thrombocytopenia. Tolerated 2 months OAC post ablation (initially on Eliquis, switched to Xarelto for cost reasons). Platelet count 63,000 today 08/09/2024, was
73,000 08/08, as low as 40,000 on 06/18/2024, but improved to 51,000 on 06/19/2024 and then 61,000 on 06/20/2024.
-Received Romiplastin 08/07/2024, gets dose every 2 weeks through hematology, Dr Cantrell
-Telemetry personally reviewed: AV pacing 70s
-EKG: AV paced 73 bpm
HPI: Patient is a 78-year-old female with a longstanding history of atrial arrhythmias including atrial fibrillation and atrial tachycardia. Also with history of ITP with propensity towards severe thrombocytopenia (under the care of
Óscar regarding her ITP/thrombocytopenia and receives Romiplastin N-plate injections every other week), RBBB, history of breast cancer, , mixed valvular heart disease, moderate mitral stenosis, moderate MR, moderate , , severe TR,
obstructive sleep apnea.
She is status post PVI April 2024. 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 Her case is complicated by history of ITP and propensity towards
severe thrombocytopenia. After discussing with her cottrell blower, it was thought that she could tolerate 2 months of oral anticoagulation. She was not on oral anticoagulation prior to ablation (JUDIE pre-ablation showed no thrombus) and platelets
were 69,000 at time of ablation. She was continued on oral anticoagulation with Xarelto for 2 months post ablation (stopped 07/18/2024). She was continued on sotalol 120 mg twice daily. She re-presented to the ED on 06/18/2024 with rapid heart rate
and was found to be in A-fib with RVR. Cardioversion was attempted with 200, 300, and 360 J shocks which which were all unsuccessful and she remained in A-fib. She was admitted admitted and sotalol uptitrated to 160 mg twice daily however she
developed QT prolongation and sotalol was stopped. She was started on Toprol 25 mg daily. She was seen in the office on 06/27/2024 and was in atrial tachycardia at 136 bpm. Pacemaker interrogation showed 50% atrial tachycardia burden with heart
rates 110s to 150s. She was in A-fib less than 1% of the time. She was started on Amiodarone 200 mg twice daily with intention to continue it through the post-ablation healing period, and she underwent cardioversion the following day
(06/29/2024)which was unsuccessful. Given rapid rates and atrial tachycardia and inability to tolerate up titration of AV mark blockers (had brain fog on Cardizem and on higher doses of metoprolol) AV mark ablation was advised and is scheduled for
08/15/2024. Of note Xarelto was stopped 2 months post ablation on 07/18/2024. She complained of nausea and dizziness as well as involuntary movements of the legs and cramps in her toes on amiodarone and dose was decreased to 100 mg daily with no
improvement in symptoms. She also developed a dry cough. Amiodarone was stopped on 07/29/2024 and metoprolol was increased to 25 mg twice daily. There was concern that she was volume overloaded and she was started on Lasix 20 mg daily.Outpatient
chest x-ray 07/30/2024 showed mild cardiomegaly with no evidence of pulmonary edema. proBNP 07/30/2024 was 1740.
She presents to the ED today with complaints of tachycardia, and generally not feeling well. Complains of headache and nausea. Weight up 7 pounds in past couple weeks, developed lower extremity edema. Unable to sleep past 2 nights due to
orthopnea.
ED evaluation:
EKG: A-fib with right bundle branch block alternating with V pacing. Her [employer] pacemaker will be interrogated to assess arrhythmia burden.
Head CT: No acute intercranial abnormality
Hemoglobin 12.4, platelets 73, NA 131, K3.8, BUN/creatinine 14/0.6, mag 1.8, TSH 4.5
Patient has a known history of paroxysmal A-fib and previously had a PVI in 2020 which patient describes as waking up from ablation and feeling fantastic. At that time though the patient remained in the hospital for sotalol loading post PVI, but
this was previously planned and patient had QT prolongation on 120 mg BID so dose was lowered to 80 mg BID and QT was stable. Patient recurred with palpitations about 6 months ago which were short bursts of atrial tachycardia and A-fib with the
longest duration being 10 minutes. There were initial attempts to add Toprol-XL and then later Cardizem CD, but these made the patient feel fatigued. Her sotalol was continued throughout and dose was eventually increased to 120 mg BID. After
talking with her Heme/Onc they felt as though she could tolerate a short course of Eliquis and so the plan was made to pursue repeat ablation and continue sotalol post ablation. Patient had preablation JUDIE 05/20/2024 and then had planned PFA/PVI
ablation 05/20/2024. At the end of the procedure the patient's [employer] DC PPM was reprogrammed to DDDR at 70-130. Patient feels a slow she has been in A-fib since the time of ablation with complaints of chest pounding with activity and
generalized fatigue. In the last 24 hours patient started with N/V/D and came to ER with the constellation of symptoms as noted. Patient was found to be in A-fib with RVR and there was an attempted CV with 200 J then 300 J then 360 J all of
which were unsuccessful and patient remains in A-fib. Cardiology is now consulted. Patient denies PND or orthopnea. Patient denies LE edema. No CP.
Progress Note - Office Chair Assembler
Subjective
Date of Service: August 09, 2024
Feels much better today, was able to sleep overnight without cough or shortness of breath
Review of telemetry shows V pacing in 70s, no bursts of AT on diltiazem drip
N.p.o. for AV mark ablation today
Objective
Labs:
08/09/24 04:54
08/09/24 04:54
Labs
Hgb 11.7 g/dL (12.0-16.0) L 08/09/24 04:54
Hct 34.7 % (37.0-47.0) L 08/09/24 04:54
Plt Count 63 10^3/uL (130-400) L 08/09/24 04:54
Sodium 130 mmol/L (135-145) L 08/09/24 04:54
Potassium 3.8 mmol/L (3.5-5.1) 08/09/24 04:54
BUN 24 mg/dl (7-17) H 08/09/24 04:54
Creatinine 0.9 mg/dL (0.6-1.0) 08/09/24 04:54
Glucose 93 mg/dl (70-99) 08/09/24 04:54
Vital Signs and I&O:
Vital Signs
Temp Pulse Resp BP Pulse Ox
97.3 F 71 16 100/64 94
08/09/24 08:17 08/09/24 06:45 08/09/24 08:17 08/09/24 06:30 08/09/24 08:17
Vital Signs
Temp Pulse Resp BP Pulse Ox
97.3 F 71 16 100/64 94
08/09/24 08:17 08/09/24 06:45 08/09/24 08:17 08/09/24 06:30 08/09/24 08:17
Physical Exam
Physical Exam
GEN: No distress, awake, Ox3
HEENT: supple, anicteric, mmm
LUNGS: CTA, decreased breath sounds right base
CV: Reg, S1/S2, 3/6 EVGENY heard t/o precordium
ABD: soft, BS+, NT/ND
EXT: 1+ B/L LE edema
NEURO: Gross non-focal
SKIN: No rash
[2024-08-09] MEDS: TOPROL XL 25 MG PO ×2 (09:07→20:10)
--- NOTE | 2024-08-09 11:06 | PN.CDI ---
CDI
- -
CDI:
Physician Documentation Request
Admit Date: 08/08/24 12:57
Dear Cardiology,
Clinical Indicators:
Patient admitted with atrial tachycardia.
Patient presented with weight gain/edema, headache.
08/08 Lasix 20 mg IV x 1.
Sodium trend:
08/08/24 08/09/24
07:45 04:54
Sodium 131 L 130 L
Based on the above, could you clarify in the progress notes, the appropriate diagnosis, if significant, that supports the above abnormalities and additional evaluation, monitoring and/or treatment rendered:
Hyponatremia
Abnormal lab value clinically insignificant
Other, please specify
Use of terms such as suspected, likely, concern for, or probable (associated with a specific diagnosis that is being evaluated, monitored, or treated as if it exists) are acceptable and can be coded in the inpatient setting, when documented at the
time of discharge.
Thank you,
JES Adler RN
CDI Specialist
available via tiger text
Please use your independent medical judgment in providing your response.
--- NOTE | 2024-08-09 12:48 | CM ---
CM following for DC planning needs.
Met w/ patient at bedside to complete initial assessment.
Pt. resides in a private, [address] ST w/ 2 TOM[address].
Functionally, patient is indep. w/ ADLs, mobility without the use of any assisted device.
Pt. has RX plan and uses [facility] in [place] for prescription needs.
Antic. DC plan is for home, no needs.
CM to follow.
--- NOTE | 2024-08-09 13:34 | ITS.CL.ABL ---
Aircraft Electronics Technical Officer - Ablation
Ablation
Procedure Report:
Primary care: Dr Rhett Cyr
Primary winder tender: Dr Dean Cantrell
Primary tin dipper: Dr. Christopher Hagan
Procedure Date: 08/09/2024
Name of procedure:
Radiofrequency Catheter Ablation of AV Junction
[employer] DC PPM programming, pre-, intra-, and post-procedure
Patient History:
See H&P for full details
Patient is a pleasant 78-year-old female with a past medical history significant for thrombocytopenia, valvular heart disease, LATRICE, hypertension, paroxysmal atrial fibrillation/atrial tachycardia status post multiple ablations, intolerance to
antiarrhythmic medical therapy and rate controlling therapy with presented with weight gain/heart failure symptoms with rapid atrial rates. Patient had recurrent emergency room visits due to this complaint and decision by outpatient tin dipper
was for planned AVJ ablation for rate control. However, patient presented during this hospitalization due to fluid overload and elevated rates and therefore was scheduled urgently.
Methods:
After informed consent had been obtained, the patient was brought to the EP lab in a post-absorptive, non-sedated state. A peripheral IV was in place. Continuous electrocardiography, blood pressure, and pulse oximetry monitoring was initiated and
cardioversion patch electrodes were positioned on the chest. The patient's device was interrogated and found to be functioning appropriately. The presenting rhythm was APVP with PACs and PAT. The device was programmed VVI 40 in preparation for AV
junction ablation.
Anesthesia services initiated sedation. The patient's inguinal regions were prepared and draped in the sterile fashion. A time out was called. Using ultrasound-guided access, visualization of the right femoral access site was performed. A large
swelling above the vasculature was noted on ultrasound and images were saved to record. Color Doppler was performed and did not demonstrate flow within this collection. Therefore, right femoral venous access was not performed. Ultrasound was then
used to visualize the right femoral access site demonstrating appropriate vasculature. Local anesthesia was given at the left femoral access site. Vascular access was achieved using modified Seldinger technique with ultrasound, and a single 8Fr
sheath was placed. An 4mm solid-tip electrode ablation catheter was carefully advanced to the patient's right atrium, taking care not to disturb the previously-placed leads. Due to atrial enlargement and severe tricuspid regurgitation, catheter was
unable to reach tricuspid annulus/compact AV node/His bundle region therefore catheter was removed and 8 Samoan short sheath was replaced with an 11.5 Samoan steerable sheath and catheter was once more introduced into the right atrium.
The HBE was mapped to the superior tricuspid annulus. A site with balanced atrial and ventricular signals was located near the HBE, and ablation was performed. Following the initiation of radiofrequency, heart block was noted with VVI pacing at 40
BPM. Ablation at this site continued for a total of 3minutes and 56 seconds, with a target power of 50 [place]. Following ablation, VA dissociation was observed when checked intermittently. No AV conduction was seen despite a reasonable waiting
period following ablation.
At the end of the procedure, the catheter was removed under fluoroscopic guidance to ensure that no disruption of the patient's previously placed leads occurred. The sheath was removed and [id number] suture with manual compression was applied.
The patient's device was checked, and pacing thresholds and sensing were found to be unchanged. It was reprogrammed to DDDR 80-100. Hemostasis was assured, and the patient was taken to the recovery area in stable condition.
Sheaths:
Left Femoral Vein � 11.5 Fr
Conclusions:
1. Successful AV Node radiofrequency ablation
Recommendations:
1. Bedrest with straight leg for 6 hours
2. Right groin ultrasound
3. IV diuresis while in-patient, monitor on telemetry
4. Outpatient follow-up to be arranged at time of DC
Madan Israel, , [facility], [facility]
Clinical Cardiac International Controller
cc: Dr Rhett Cyr; Dr Dean Cantrell; Dr. Christopher Hagan
--- NOTE | 2024-08-09 14:21 | PN.CDI ---
CDI
- -
CDI:
Physician Documentation Request
Admit Date: 08/08/24 12:57
Dear Cardiology,
Clinical Indicators:
Patient admitted with atrial tachycardia.
08/09 PN, '...presented with symptomatic atrial tachycardia and evidence of heart failure with preserved ejection fraction.'
08/09 Lasix increased to 40 mg IV daily.
BNP on admission:
08/08/24
07:45
Aik-[id number]-Tlmubxkhqro Pept 1850
Please provide further specificity regarding the acuity of HFpEF you are evaluating, treating or monitoring.
Acute HFpEF
Other, please specify
Use of terms such as suspected, likely, concern for, or probable (associated with a specific diagnosis that is being evaluated, monitored, or treated as if it exists) are acceptable and can be coded in the inpatient setting, when documented at the
time of discharge.
Thank you,
JES Adler RN
CDI Specialist
available via tiger text
Please use your independent medical judgment in providing your response.
[2024-08-09] MEDS: VITAMIN C PO (16:18)
[2024-08-09] MEDS: LASIX IV (16:18)
[2024-08-09] MEDS: FEOSOL PO (16:18)
[2024-08-09] MEDS: B COMPLEX w/VITAMIN C PO (16:19)
--- NOTE | 2024-08-09 18:29 | PTCARENOTE ---
left groin is cdi. pt continues to be av paced on the monitor, hr in the 80s, vss. pt offers no complaints at this time. pt educated on plan of care and bedrest orders, pt verbalized understanding. at bedside visiting. call varner within
reach.
[2024-08-09] MEDS: LASIX 20 MG IV (21:40)
--- NOTE | 2024-08-09 22:53 | PTCARENOTE ---
received patient at the change of shift. AAOx3. bedrest until 2129. AVpaced on tele 80s. bp stable. L groin site intact/figure of 8 sutures. patients only complaint is feeling short of breath. patient states 'hard to exhale' and increased frequency
of a dry cough- increased since ablation today. lung sounds unchanged- diminished. shallow breathing noted. 93% on RA. updated Dr. Israel via TT. per MD, ordered placed for a STAT chest xray. once completed, xray result sent to Dr. Israel. 20 IV
lasix ordered and given per MD, see mar.
sutures removed at approx 2129. OOB to the bathroom at approx 2210. patient steady on her feet. urinated yellow urine. PM care completed. patient dyspnea on exertion once returned to bed. 'i feel wiped out.' 90% on RA. placed on 2L- 94%. L groin
site remained stable; CDI.
reviewed plan of care with patient and verbalized understanding. educated patient to inform RN with any changes and with assistance overnight. call varner within reach.
[2024-08-10] VITALS (7 sets, daily range): BP systolic 107–119; BP diastolic 56–74; BMI 25.1
--- NOTE | 2024-08-10 04:34 | PTCARENOTE ---
patient states improved breathing since lasix dose overnight. L groin site intact. ambulating to the BR.
[2024-08-10 05:40] LABS: Blood Urea Nitrogen 21 mg/dl (7-17); Calcium 8.9 mg/dl (8.4-10.2); Carbon Dioxide 23 mmol/L (22-30); Chloride 103 mmol/L (98-107); Estimated Creatinine Clearance 66 ml/min; Glucose 97 mg/dl (70-99); Potassium 3.9 mmol/L (3.5-5.1); Sodium 134 mmol/L (135-145); eGFR > 60.00
[2024-08-10 05:43] LABS: Hematocrit 38.6 % (37.0-47.0); Hemoglobin 13.4 g/dL (12.0-16.0); Mean Corp Hgb Conc. 34.7 g/dL (33.0-37.0); Mean Corpuscular Hgb 31.2 pg (27.0-31.0); Mean Corpuscular Volume 89.8 fL (81.0-99.0); Platelet Count 59 10^3/uL (130-400); White Blood Cell Count 6.8 10^3/uL (4.8-10.8)
[2024-08-10] MEDS: SYNTHROID 75 MCG PO (06:12)
[2024-08-10] MEDS: TOPROL XL 25 MG PO ×2 (08:19→20:18)
[2024-08-10] MEDS: LASIX 40 MG IV ×2 (08:19→13:21)
--- NOTE | 2024-08-10 11:48 | W.PN.CARDCBS ---
Today's Communication / Plan
-
Diurese another 24hours and will likely send home on Lasix 20 mg daily
Post procedure supportive care and groin monitoring in the setting of known ITP
Anticipate discharge in the next 24/48 hours
Impression / Plan
-
Primary care: Dr Rhett Cyr
Primary stopper maker: Dr Dean Cantrell
Primary cards: Dr. Christopher Hagan
Impression:
Presented to ER 08/08/2024 with shortness of breath/orthopnea, weight gain, rapid HR, generalized feeling unwell
paroxysmal AT with RVR, s/p unsuccessful CV in ER 06/18/2024
Previously paroxysmal then more persistent A-fib and AT
s/p PVI 2020
s/p PFA/PVI 05/20/2024
Unsuccessful CV in ED 06/18/2024 for AT
Unsuccessful cardioversion for AT 06/28/2024 after initiation of amiodarone
Previously on chronic sotalol, stopped 05/2024 due to prolonged QT
Not on chronic oral anticoagulation due to history of ITP with propensity towards thrombocytopenia. Did tolerate 2 months of OAC post ablation April 2024, now off
[employer] DC PPM
Thrombocytopenia
ITP
Mod-severe MR
Moderate mitral stenosis
Mild
Mild- mod AI
Severe TR with mod-sev pulmonary hypertension, PAP 55 to 60 mmHg echo 12/2023
Hypothyroid
LATRICE
HTN
R breast CA, s/p mastectomy 1980
Echo 01/08/2024: EF 55 to 60%, mild MS with mean gradient 5 mmHg, mild to moderate eccentric MR, moderate AAS peak/mean 18/12 mmHg and RAMSES 0.8 cm SQ, mild to moderate aortic regurgitation, severe TR with moderate to severe PHTN and PAP 55 to 60 mmHg
JUDIE 05/20/2024: Normal BiV size and function without WMA, no evidence of spontaneous echo contrast or thrombus in the RA or LA/BRANDON, moderate MS
Echo 08/08/2024: Normal LV/RV size and function LVEF 55 to 60%, normal LA, moderately dilated RA, mitral annular calcification peak/mean mitral valve gradients 14/15 mmHg, moderate to severe MR, mild (peak/mean 27/15/0 0.9 cm�), severe TR, PAP 30
to 35 mmHg, mild [place].
Plan:
- Symptomatic paroxysmal atrial tachycardia with history of atrial fibrillation now status post AV mark ablation on 08/09/24 with mild volume overload
-TSH was 4.51 proBNP 1850
- She states that she feels significantly better post procedure and is currently AV paced although still slightly short of breath
- Groin site intact. Right groin ultrasound postprocedure noted no evidence of pseudoaneurysm or active hemorrhage. No hematoma. Anechoic fluid collection in the subcu cutaneous soft tissue suggesting of a seroma.
- Will continue IV Lasix another 24 hours and assess long-term needs. Patient had not been on Lasix prior to this admission outpatient hydrochlorothiazide held
- Patient has dual-chamber [employer] pacemaker with generator change in 2022. Interrogated this admission with normal function, no VT or atrial fibrillation with runs of atrial tachycardia
-Echo 08/08/2024 stable- nl LV/RV size and fxn, mod-sev MR, mild , sev TR, PAP 30-35 mmHg (PAP improved from 12/2023 echo)
-Not on oral anticoagulation due to longstanding history of ITP with propensity towards thrombocytopenia.
-Postprocedure pertinent labs hemoglobin 13.4, platelets 59,000, sodium 134, BUN/creatinine 21/0.7. Potassium 3.9.
-Received Romiplastin 08/07/2024, gets dose every 2 weeks through hematology, Dr Cantrell-no evidence of bleeding
HPI: Patient is a 78-year-old female with a longstanding history of atrial arrhythmias including atrial fibrillation and atrial tachycardia. Also with history of ITP with propensity towards severe thrombocytopenia (under the care of
Óscar regarding her ITP/thrombocytopenia and receives Romiplastin N-plate injections every other week), RBBB, history of breast cancer, , mixed valvular heart disease, moderate mitral stenosis, moderate MR, moderate , , severe TR,
obstructive sleep apnea.
She is status post PVI April 2024. 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 Her case is complicated by history of ITP and propensity towards
severe thrombocytopenia. After discussing with her stopper maker, it was thought that she could tolerate 2 months of oral anticoagulation. She was not on oral anticoagulation prior to ablation (JUDIE pre-ablation showed no thrombus) and platelets
were 69,000 at time of ablation. She was continued on oral anticoagulation with Xarelto for 2 months post ablation (stopped 07/18/2024). She was continued on sotalol 120 mg twice daily. She re-presented to the ED on 06/18/2024 with rapid heart rate
and was found to be in A-fib with RVR. Cardioversion was attempted with 200, 300, and 360 J shocks which which were all unsuccessful and she remained in A-fib. She was admitted admitted and sotalol uptitrated to 160 mg twice daily however she
developed QT prolongation and sotalol was stopped. She was started on Toprol 25 mg daily. She was seen in the office on 06/27/2024 and was in atrial tachycardia at 136 bpm. Pacemaker interrogation showed 50% atrial tachycardia burden with heart
rates 110s to 150s. She was in A-fib less than 1% of the time. She was started on Amiodarone 200 mg twice daily with intention to continue it through the post-ablation healing period, and she underwent cardioversion the following day
(06/29/2024)which was unsuccessful. Given rapid rates and atrial tachycardia and inability to tolerate up titration of AV mark blockers (had brain fog on Cardizem and on higher doses of metoprolol) AV mark ablation was advised and is scheduled for
08/15/2024. Of note Xarelto was stopped 2 months post ablation on 07/18/2024. She complained of nausea and dizziness as well as involuntary movements of the legs and cramps in her toes on amiodarone and dose was decreased to 100 mg daily with no
improvement in symptoms. She also developed a dry cough. Amiodarone was stopped on 07/29/2024 and metoprolol was increased to 25 mg twice daily. There was concern that she was volume overloaded and she was started on Lasix 20 mg daily.Outpatient
chest x-ray 07/30/2024 showed mild cardiomegaly with no evidence of pulmonary edema. proBNP 07/30/2024 was 1740.
She presents to the ED today with complaints of tachycardia, and generally not feeling well. Complains of headache and nausea. Weight up 7 pounds in past couple weeks, developed lower extremity edema. Unable to sleep past 2 nights due to
orthopnea.
ED evaluation:
EKG: A-fib with right bundle branch block alternating with V pacing. Her [employer] pacemaker will be interrogated to assess arrhythmia burden.
Head CT: No acute intercranial abnormality
Hemoglobin 12.4, platelets 73, NA 131, K3.8, BUN/creatinine 14/0.6, mag 1.8, TSH 4.5
Patient has a known history of paroxysmal A-fib and previously had a PVI in 2020 which patient describes as waking up from ablation and feeling fantastic. At that time though the patient remained in the hospital for sotalol loading post PVI, but
this was previously planned and patient had QT prolongation on 120 mg BID so dose was lowered to 80 mg BID and QT was stable. Patient recurred with palpitations about 6 months ago which were short bursts of atrial tachycardia and A-fib with the
longest duration being 10 minutes. There were initial attempts to add Toprol-XL and then later Cardizem CD, but these made the patient feel fatigued. Her sotalol was continued throughout and dose was eventually increased to 120 mg BID. After
talking with her Heme/Onc they felt as though she could tolerate a short course of Eliquis and so the plan was made to pursue repeat ablation and continue sotalol post ablation. Patient had preablation JUDIE 05/20/2024 and then had planned PFA/PVI
ablation 05/20/2024. At the end of the procedure the patient's [employer] DC PPM was reprogrammed to DDDR at 70-130. Patient feels a slow she has been in A-fib since the time of ablation with complaints of chest pounding with activity and
generalized fatigue. In the last 24 hours patient started with N/V/D and came to ER with the constellation of symptoms as noted. Patient was found to be in A-fib with RVR and there was an attempted CV with 200 J then 300 J then 360 J all of
which were unsuccessful and patient remains in A-fib. Cardiology is now consulted. Patient denies PND or orthopnea. Patient denies LE edema. No CP.
Progress Note - Probate Judge
Subjective
Date of Service: August 10, 2024
Seen and examined. Overall feels well sitting out of bed to chair with mild shortness of breath that has improved and overall states she feels much better following procedure. No groin pain.
Objective
Labs:
08/10/24 04:30
08/10/24 04:30
Labs
Hgb 13.4 g/dL (12.0-16.0) 08/10/24 04:30
Hct 38.6 % (37.0-47.0) 08/10/24 04:30
Plt Count 59 10^3/uL (130-400) L 08/10/24 04:30
Sodium 134 mmol/L (135-145) L 08/10/24 04:30
Potassium 3.9 mmol/L (3.5-5.1) 08/10/24 04:30
BUN 21 mg/dl (7-17) H 08/10/24 04:30
Creatinine 0.7 mg/dL (0.6-1.0) 08/10/24 04:30
Glucose 97 mg/dl (70-99) 08/10/24 04:30
Vital Signs and I&O:
Vital Signs
Temp Pulse Resp BP Pulse Ox
98.0 F 81 20 116/56 92
08/10/24 04:14 08/10/24 08:19 08/10/24 04:14 08/10/24 08:19 08/10/24 04:19
Vital Signs
Temp Pulse Resp BP Pulse Ox
98.0 F 81 20 116/56 92
08/10/24 04:14 08/10/24 08:19 08/10/24 04:14 08/10/24 08:19 08/10/24 04:19
Intake & Output
08/08/24 08/09/24 08/10/24 08/11/24
06:59 06:59 06:59 06:59
Intake Total 250 / 250
Output Total 1974
Balance -1725 / -1725
Physical Exam
Physical Exam
GEN: No distress, awake, Ox3
HEENT: supple, anicteric, mmm
LUNGS: CTA, decreased breath sounds right base
CV: Reg, S1/S2, 3/6 EVGENY heard t/o precordium
ABD: soft, BS+, NT/ND
EXT: 1+ B/L LE edema
NEURO: Gross non-focal
--- NOTE | 2024-08-10 12:51 | W.PN.UPDATE ---
Update Note
Progress Note Update
- Patient complaining of shortness of breath with exertion. No chest pain. Lungs with faint rales at bases, no wheezing or rhonchi O2 sat 93% on room air. Patient sitting upright in chair, appears comfortable. Has trace-1+ B/L LE edema. No
significant decrease in wt since admission despite IV diuretics, Wt 165 pounds today, was 166 pounds yesterday, and 157 pounds at time of discharge 06/20/2024. Will give extra dose of Lasix 40 mg IV now.
[2024-08-10] MEDS: FEOSOL 325 MG PO (13:21)
[2024-08-10] MEDS: VITAMIN C 500 MG PO (13:21)
[2024-08-10] MEDS: B COMPLEX w/VITAMIN C 1 CAPLET PO (17:13)
--- NOTE | 2024-08-10 19:38 | PTCARENOTE ---
Received pt @ change of shift. AAOx3, OOB on couch. VSS stable-- AV-paced on monitor. Left groin site clean, dry, and intact. No ecchymosis, soft to touch, weak pedal pulses. Discussed plan of care for evening. Pt verbalizes understanding. Call varner
within reach.
[2024-08-10] MEDS: TYLENOL 500 MG PO (22:32)
[2024-08-11] VITALS (7 sets, daily range): BP systolic 104–126; BP diastolic 60–69; BMI 24.7
[2024-08-11] MEDS: SYNTHROID 75 MCG PO (05:59)
[2024-08-11] MEDS: SENOKOT-S 1 TABLET PO (05:59)
[2024-08-11] MEDS: LASIX 40 MG IV ×2 (07:45→17:37)
[2024-08-11] MEDS: TOPROL XL 25 MG PO ×2 (07:45→19:36)
--- NOTE | 2024-08-11 08:55 | PTCARENOTE ---
Rec'd pt at handoff. AOX3. Tele- AV-paced. Pt has no complaints at this time. VSS. Plan of care reviewed w/ pt and verbalizes understanding.
--- NOTE | 2024-08-11 09:11 | W.PN.CARDCBS ---
Today's Communication / Plan
-
Continue IV diuresis another 24 hours and hopefully switch to oral Lasix tomorrow.
Impression / Plan
-
Primary care: Dr Rhett Cyr
Primary unemployment claims adjudicator: Dr Dean Cantrell
Primary cards: Dr. Christopher Hagan
Impression:
Presented to ER 08/08/2024 with shortness of breath/orthopnea, weight gain, rapid HR, generalized feeling unwell
paroxysmal AT with RVR, s/p unsuccessful CV in ER 06/18/2024
Previously paroxysmal then more persistent A-fib and AT
s/p PVI 2020
s/p PFA/PVI 05/20/2024
Unsuccessful CV in ED 06/18/2024 for AT
Unsuccessful cardioversion for AT 06/28/2024 after initiation of amiodarone
Previously on chronic sotalol, stopped 05/2024 due to prolonged QT
Not on chronic oral anticoagulation due to history of ITP with propensity towards thrombocytopenia. Did tolerate 2 months of OAC post ablation April 2024, now off
[employer] DC PPM
Thrombocytopenia
ITP
Mod-severe MR
Moderate mitral stenosis
Mild
Mild- mod AI
Severe TR with mod-sev pulmonary hypertension, PAP 55 to 60 mmHg echo 12/2023
Hypothyroid
LATRICE
HTN
R breast CA, s/p mastectomy 1980
Echo 01/08/2024: EF 55 to 60%, mild MS with mean gradient 5 mmHg, mild to moderate eccentric MR, moderate AAS peak/mean 18/12 mmHg and RAMSES 0.8 cm SQ, mild to moderate aortic regurgitation, severe TR with moderate to severe PHTN and PAP 55 to 60 mmHg
JUDIE 05/20/2024: Normal BiV size and function without WMA, no evidence of spontaneous echo contrast or thrombus in the RA or LA/BRANDON, moderate MS
Echo 08/08/2024: Normal LV/RV size and function LVEF 55 to 60%, normal LA, moderately dilated RA, mitral annular calcification peak/mean mitral valve gradients 14/15 mmHg, moderate to severe MR, mild (peak/mean 27/15/0 0.9 cm�), severe TR, PAP 30
to 35 mmHg, mild [place].
Plan:
- Symptomatic paroxysmal atrial tachycardia with history of atrial fibrillation now status post AV mark ablation on 08/09/24 with mild volume overload
-TSH was 4.51 proBNP 1850
- She is doing much better today ambulating around unit without worsening shortness of breath
-She is still mildly volume overloaded and I would prefer another 24 hours of IV Lasix.
-Will transition her to oral Lasix hopefully starting tomorrow. I suspect she will need a higher dose of Lasix to go home initially, 40 mg twice daily
- Groin site intact. Right groin ultrasound postprocedure noted no evidence of pseudoaneurysm or active hemorrhage. No hematoma. Anechoic fluid collection in the subcu cutaneous soft tissue suggesting of a seroma.
- Patient has dual-chamber [employer] pacemaker with generator change in 2022. Interrogated this admission with normal function, no VT or atrial fibrillation with runs of atrial tachycardia
-Echo 08/08/2024 stable- nl LV/RV size and fxn, mod-sev MR, mild , sev TR, PAP 30-35 mmHg (PAP improved from 12/2023 echo)
-Not on oral anticoagulation due to longstanding history of ITP with propensity towards thrombocytopenia.
-Postprocedure pertinent labs hemoglobin 13.4, platelets 59,000, sodium 134, BUN/creatinine 21/0.7. Potassium 3.9.
-Received Romiplastin 08/07/2024, gets dose every 2 weeks through hematology, Dr Cantrell-no evidence of bleeding
HPI: Patient is a 78-year-old female with a longstanding history of atrial arrhythmias including atrial fibrillation and atrial tachycardia. Also with history of ITP with propensity towards severe thrombocytopenia (under the care of
Óscar regarding her ITP/thrombocytopenia and receives Romiplastin N-plate injections every other week), RBBB, history of breast cancer, , mixed valvular heart disease, moderate mitral stenosis, moderate MR, moderate , , severe TR,
obstructive sleep apnea.
She is status post PVI April 2024. 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 Her case is complicated by history of ITP and propensity towards
severe thrombocytopenia. After discussing with her unemployment claims adjudicator, it was thought that she could tolerate 2 months of oral anticoagulation. She was not on oral anticoagulation prior to ablation (JUDIE pre-ablation showed no thrombus) and platelets
were 69,000 at time of ablation. She was continued on oral anticoagulation with Xarelto for 2 months post ablation (stopped 07/18/2024). She was continued on sotalol 120 mg twice daily. She re-presented to the ED on 06/18/2024 with rapid heart rate
and was found to be in A-fib with RVR. Cardioversion was attempted with 200, 300, and 360 J shocks which which were all unsuccessful and she remained in A-fib. She was admitted admitted and sotalol uptitrated to 160 mg twice daily however she
developed QT prolongation and sotalol was stopped. She was started on Toprol 25 mg daily. She was seen in the office on 06/27/2024 and was in atrial tachycardia at 136 bpm. Pacemaker interrogation showed 50% atrial tachycardia burden with heart
rates 110s to 150s. She was in A-fib less than 1% of the time. She was started on Amiodarone 200 mg twice daily with intention to continue it through the post-ablation healing period, and she underwent cardioversion the following day
(06/29/2024)which was unsuccessful. Given rapid rates and atrial tachycardia and inability to tolerate up titration of AV mark blockers (had brain fog on Cardizem and on higher doses of metoprolol) AV mark ablation was advised and is scheduled for
08/15/2024. Of note Xarelto was stopped 2 months post ablation on 07/18/2024. She complained of nausea and dizziness as well as involuntary movements of the legs and cramps in her toes on amiodarone and dose was decreased to 100 mg daily with no
improvement in symptoms. She also developed a dry cough. Amiodarone was stopped on 07/29/2024 and metoprolol was increased to 25 mg twice daily. There was concern that she was volume overloaded and she was started on Lasix 20 mg daily.Outpatient
chest x-ray 07/30/2024 showed mild cardiomegaly with no evidence of pulmonary edema. proBNP 07/30/2024 was 1740.
She presents to the ED today with complaints of tachycardia, and generally not feeling well. Complains of headache and nausea. Weight up 7 pounds in past couple weeks, developed lower extremity edema. Unable to sleep past 2 nights due to
orthopnea.
ED evaluation:
EKG: A-fib with right bundle branch block alternating with V pacing. Her [employer] pacemaker will be interrogated to assess arrhythmia burden.
Head CT: No acute intercranial abnormality
Hemoglobin 12.4, platelets 73, NA 131, K3.8, BUN/creatinine 14/0.6, mag 1.8, TSH 4.5
Patient has a known history of paroxysmal A-fib and previously had a PVI in 2020 which patient describes as waking up from ablation and feeling fantastic. At that time though the patient remained in the hospital for sotalol loading post PVI, but
this was previously planned and patient had QT prolongation on 120 mg BID so dose was lowered to 80 mg BID and QT was stable. Patient recurred with palpitations about 6 months ago which were short bursts of atrial tachycardia and A-fib with the
longest duration being 10 minutes. There were initial attempts to add Toprol-XL and then later Cardizem CD, but these made the patient feel fatigued. Her sotalol was continued throughout and dose was eventually increased to 120 mg BID. After
talking with her Heme/Onc they felt as though she could tolerate a short course of Eliquis and so the plan was made to pursue repeat ablation and continue sotalol post ablation. Patient had preablation JUDIE 05/20/2024 and then had planned PFA/PVI
ablation 05/20/2024. At the end of the procedure the patient's [employer] DC PPM was reprogrammed to DDDR at 70-130. Patient feels a slow she has been in A-fib since the time of ablation with complaints of chest pounding with activity and
generalized fatigue. In the last 24 hours patient started with N/V/D and came to ER with the constellation of symptoms as noted. Patient was found to be in A-fib with RVR and there was an attempted CV with 200 J then 300 J then 360 J all of
which were unsuccessful and patient remains in A-fib. Cardiology is now consulted. Patient denies PND or orthopnea. Patient denies LE edema. No CP.
Progress Note - Mill Labor Supervisor
Subjective
Date of Service: August 11, 2024
Patient seen and examined. Improved shortness of breath after second dose of Lasix yesterday. No decompensation today and ambulating around halls. Continues to have some mild shortness of breath. No groin pain.
Objective
Labs:
08/10/24 04:30
08/10/24 04:30
Labs
Hgb 13.4 g/dL (12.0-16.0) 08/10/24 04:30
Hct 38.6 % (37.0-47.0) 08/10/24 04:30
Plt Count 59 10^3/uL (130-400) L 08/10/24 04:30
Sodium 134 mmol/L (135-145) L 08/10/24 04:30
Potassium 3.9 mmol/L (3.5-5.1) 08/10/24 04:30
BUN 21 mg/dl (7-17) H 08/10/24 04:30
Creatinine 0.7 mg/dL (0.6-1.0) 08/10/24 04:30
Glucose 97 mg/dl (70-99) 08/10/24 04:30
Vital Signs and I&O:
Vital Signs
Temp Pulse Resp BP Pulse Ox
98.5 F 81 20 115/60 95
08/11/24 07:42 08/11/24 07:45 08/11/24 07:42 08/11/24 07:41 08/11/24 07:42
Vital Signs
Temp Pulse Resp BP Pulse Ox
98.5 F 81 20 115/60 95
08/11/24 07:42 08/11/24 07:45 08/11/24 07:42 08/11/24 07:41 08/11/24 07:42
Intake & Output
08/09/24 08/10/24 08/11/24 08/12/24
06:59 06:59 06:59 06:59
Intake Total 250 / 250 480 / 480
Output Total 1974
Balance -1725 / -1725 480 / 480
Physical Exam
Physical Exam
GEN: No distress, awake, Ox3
HEENT: supple, anicteric, mmm
LUNGS: CTA, decreased breath sounds right base
CV: Reg, S1/S2, 3/6 EVGENY heard t/o precordium
ABD: soft, BS+, NT/ND
EXT: 1+ B/L LE edema; Left groin with ecchymosis but soft. No hematoma. No bleeding
NEURO: Gross non-focal
[2024-08-11] MEDS: FEOSOL 325 MG PO (11:55)
[2024-08-11] MEDS: VITAMIN C 500 MG PO (11:55)
[2024-08-11] MEDS: B COMPLEX w/VITAMIN C 1 CAPLET PO (17:26)
[2024-08-11] MEDS: AMBIEN 5 MG PO (21:20)
[2024-08-12 03:44] VITALS: BP 126/66
[2024-08-12 03:46] VITALS: BMI 24.0
[2024-08-12] MEDS: SYNTHROID 75 MCG PO (06:11)
[2024-08-12 07:33] VITALS: BP 99/52
[2024-08-12 08:09] VITALS: BP 122/59
[2024-08-12] MEDS: TOPROL XL 25 MG PO (08:11)
[2024-08-12] MEDS: LASIX 40 MG IV (08:12)
--- NOTE | 2024-08-12 08:58 | W.PN.CARDCBS ---
Today's Communication / Plan
-
Labs today
Transition to oral Lasix
VNA will be arranged
Discharge follow-up being arranged
Impression / Plan
-
Primary care: Dr Rhett Cyr
Primary whipper: Dr Dean Cantrell
Primary cards: Dr. Christopher Hagan
Impression:
Presented to ER 08/08/2024 with shortness of breath/orthopnea, weight gain, rapid HR, generalized feeling unwell
paroxysmal AT with RVR, s/p unsuccessful CV in ER 06/18/2024
Previously paroxysmal then more persistent A-fib and AT
s/p PVI 2020
s/p PFA/PVI 05/20/2024
Unsuccessful CV in ED 06/18/2024 for AT
Unsuccessful cardioversion for AT 06/28/2024 after initiation of amiodarone
Previously on chronic sotalol, stopped 05/2024 due to prolonged QT
Not on chronic oral anticoagulation due to history of ITP with propensity towards thrombocytopenia. Did tolerate 2 months of OAC post ablation April 2024, now off
[employer] DC PPM
Thrombocytopenia
ITP
Mod-severe MR
Moderate mitral stenosis
Mild
Mild- mod AI
Severe TR with mod-sev pulmonary hypertension, PAP 55 to 60 mmHg echo 12/2023
Hypothyroid
LATRICE
HTN
R breast CA, s/p mastectomy 1979
Echo 01/08/2024: EF 55 to 60%, mild MS with mean gradient 5 mmHg, mild to moderate eccentric MR, moderate AAS peak/mean 18/12 mmHg and RAMSES 0.8 cm SQ, mild to moderate aortic regurgitation, severe TR with moderate to severe PHTN and PAP 55 to 60 mmHg
JUDIE 05/20/2024: Normal BiV size and function without WMA, no evidence of spontaneous echo contrast or thrombus in the RA or LA/BRANDON, moderate MS
Echo 08/08/2024: Normal LV/RV size and function LVEF 55 to 60%, normal LA, moderately dilated RA, mitral annular calcification peak/mean mitral valve gradients 14/15 mmHg, moderate to severe MR, mild (peak/mean 27/15/0 0.9 cm�), severe TR, PAP 30
to 35 mmHg, mild AL.
Plan:
- Symptomatic paroxysmal atrial tachycardia with history of atrial fibrillation now status post AV mark ablation on 08/09/24 with mild volume overload
-TSH was 4.51 proBNP 0
- She is doing much better today ambulating around unit without worsening shortness of breath
- Groin site intact with ecchymosis
-Right groin ultrasound postprocedure noted no evidence of pseudoaneurysm or active hemorrhage. No hematoma. Anechoic fluid collection in the subcu cutaneous soft tissue suggesting of a seroma.
- Patient has dual-chamber [employer] pacemaker with generator change in 2022. Interrogated this admission with normal function, no VT or atrial fibrillation with runs of atrial tachycardia
-Echo 08/08/2024 stable- nl LV/RV size and fxn, mod-sev MR, mild , sev TR, PAP 30-35 mmHg (PAP improved from 12/2023 echo)
-Not on oral anticoagulation due to longstanding history of ITP with propensity towards thrombocytopenia.
-Received Romiplastin 08/07/2024, gets dose every 2 weeks through hematology, Dr Cantrell-no evidence of bleeding
-Will transition her to oral Lasix. I suspect she will need a higher dose of Lasix to go home initially, 40 mg twice daily
-Repeat labs today
-Discharge home later today after labs resulted/reviewed
HPI: Patient is a 78-year-old female with a longstanding history of atrial arrhythmias including atrial fibrillation and atrial tachycardia. Also with history of ITP with propensity towards severe thrombocytopenia (under the care of
Óscar regarding her ITP/thrombocytopenia and receives Romiplastin N-plate injections every other week), RBBB, history of breast cancer, , mixed valvular heart disease, moderate mitral stenosis, moderate MR, moderate , , severe TR,
obstructive sleep apnea.
She is status post PVI April 2024. 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 Her case is complicated by history of ITP and propensity towards
severe thrombocytopenia. After discussing with her whipper, it was thought that she could tolerate 2 months of oral anticoagulation. She was not on oral anticoagulation prior to ablation (JUDIE pre-ablation showed no thrombus) and platelets
were 69,000 at time of ablation. She was continued on oral anticoagulation with Xarelto for 2 months post ablation (stopped 07/18/2024). She was continued on sotalol 120 mg twice daily. She re-presented to the ED on 06/18/2024 with rapid heart rate
and was found to be in A-fib with RVR. Cardioversion was attempted with 200, 300, and 360 J shocks which which were all unsuccessful and she remained in A-fib. She was admitted admitted and sotalol uptitrated to 160 mg twice daily however she
developed QT prolongation and sotalol was stopped. She was started on Toprol 25 mg daily. She was seen in the office on 06/27/2024 and was in atrial tachycardia at 136 bpm. Pacemaker interrogation showed 50% atrial tachycardia burden with heart
rates 110s to 150s. She was in A-fib less than 1% of the time. She was started on Amiodarone 200 mg twice daily with intention to continue it through the post-ablation healing period, and she underwent cardioversion the following day
(06/29/2024)which was unsuccessful. Given rapid rates and atrial tachycardia and inability to tolerate up titration of AV mark blockers (had brain fog on Cardizem and on higher doses of metoprolol) AV mark ablation was advised and is scheduled for
08/15/2024. Of note Xarelto was stopped 2 months post ablation on 07/18/2024. She complained of nausea and dizziness as well as involuntary movements of the legs and cramps in her toes on amiodarone and dose was decreased to 100 mg daily with no
improvement in symptoms. She also developed a dry cough. Amiodarone was stopped on 07/29/2024 and metoprolol was increased to 25 mg twice daily. There was concern that she was volume overloaded and she was started on Lasix 20 mg daily.Outpatient
chest x-ray 07/30/2024 showed mild cardiomegaly with no evidence of pulmonary edema. proBNP 07/30/2024 was 1740.
She presents to the ED today with complaints of tachycardia, and generally not feeling well. Complains of headache and nausea. Weight up 7 pounds in past couple weeks, developed lower extremity edema. Unable to sleep past 2 nights due to
orthopnea.
ED evaluation:
EKG: A-fib with right bundle branch block alternating with V pacing. Her [employer] pacemaker will be interrogated to assess arrhythmia burden.
Head CT: No acute intercranial abnormality
Hemoglobin 12.4, platelets 73, NA 131, K3.8, BUN/creatinine 14/0.6, mag 1.8, TSH 4.5
Patient has a known history of paroxysmal A-fib and previously had a PVI in 2020 which patient describes as waking up from ablation and feeling fantastic. At that time though the patient remained in the hospital for sotalol loading post PVI, but
this was previously planned and patient had QT prolongation on 120 mg BID so dose was lowered to 80 mg BID and QT was stable. Patient recurred with palpitations about 6 months ago which were short bursts of atrial tachycardia and A-fib with the
longest duration being 10 minutes. There were initial attempts to add Toprol-XL and then later Cardizem CD, but these made the patient feel fatigued. Her sotalol was continued throughout and dose was eventually increased to 120 mg BID. After
talking with her Heme/Onc they felt as though she could tolerate a short course of Eliquis and so the plan was made to pursue repeat ablation and continue sotalol post ablation. Patient had preablation JUDIE 05/20/2024 and then had planned PFA/PVI
ablation 05/20/2024. At the end of the procedure the patient's [employer] DC PPM was reprogrammed to DDDR at 70-130. Patient feels a slow she has been in A-fib since the time of ablation with complaints of chest pounding with activity and
generalized fatigue. In the last 24 hours patient started with N/V/D and came to ER with the constellation of symptoms as noted. Patient was found to be in A-fib with RVR and there was an attempted CV with 200 J then 300 J then 360 J all of
which were unsuccessful and patient remains in A-fib. Cardiology is now consulted. Patient denies PND or orthopnea. Patient denies LE edema. No CP.
Progress Note - Organizational Development Consultant
Subjective
Date of Service: August 12, 2024
Seen and examined. Ambulating in room and feeling well. Shortness of breath and edema have overall improved.
Objective
Labs:
08/10/24 04:30
08/10/24 04:30
Labs
Hgb 13.4 g/dL (12.0-16.0) 08/10/24 04:30
Hct 38.6 % (37.0-47.0) 08/10/24 04:30
Plt Count 59 10^3/uL (130-400) L 08/10/24 04:30
Sodium 134 mmol/L (135-145) L 08/10/24 04:30
Potassium 3.9 mmol/L (3.5-5.1) 08/10/24 04:30
BUN 21 mg/dl (7-17) H 08/10/24 04:30
Creatinine 0.7 mg/dL (0.6-1.0) 08/10/24 04:30
Glucose 97 mg/dl (70-99) 08/10/24 04:30
Vital Signs and I&O:
Vital Signs
Temp Pulse Resp BP Pulse Ox
97.8 F 85 20 122/59 90
08/12/24 07:33 08/12/24 08:45 08/12/24 07:33 08/12/24 08:12 08/12/24 07:33
Vital Signs
Temp Pulse Resp BP Pulse Ox
97.8 F 85 20 122/59 90
08/12/24 07:33 08/12/24 08:45 08/12/24 07:33 08/12/24 08:12 08/12/24 07:33
Intake & Output
08/10/24 08/11/24 08/12/24 08/13/24
06:59 06:59 06:59 06:59
Intake Total 250 / 250 480 / 480 680 / 680
Output Total 1974
Balance -1725 / -1725 480 / 480 680 / 680
Physical Exam
Physical Exam
GEN: No distress, awake, Ox3
HEENT: supple, anicteric, mmm
LUNGS: Clear to auscultation
CV: Reg, S1/S2, 3/6 EVGENY heard t/o precordium +device
ABD: soft, BS+, NT/ND
EXT: 1+ B/L LE edema; Left groin with ecchymosis but soft. No hematoma. No bleeding
NEURO: Gross non-focal
[2024-08-12 10:06] LABS: Hematocrit 40.6 % (37.0-47.0); Hemoglobin 13.5 g/dL (12.0-16.0); Mean Corp Hgb Conc. 33.3 g/dL (33.0-37.0); Mean Corpuscular Hgb 30.6 pg (27.0-31.0); Mean Corpuscular Volume 92.1 fL (81.0-99.0); Platelet Count 71 10^3/uL (130-400); Red Blood Cell Count 4.41 10^6/uL (4.20-5.40); Red Cell Dist. Width 14.1 % (11.5-14.5)
[2024-08-12 10:18] LABS: NT-proBNP 3360 pg/ml
[2024-08-12 10:25] LABS: Blood Urea Nitrogen 21 mg/dl (7-17); Calcium 9.3 mg/dl (8.4-10.2); Carbon Dioxide 36 mmol/L (22-30); Chloride 98 mmol/L (98-107); Estimated Creatinine Clearance 58 ml/min; Glucose 109 mg/dl (70-99); Potassium 3.5 mmol/L (3.5-5.1); Sodium 139 mmol/L (135-145); eGFR > 60.00
--- NOTE | 2024-08-12 10:35 | W.DS.TRANS ---
DC Summary - Wafer Production Worker
-
Discharge Instructions:
Sleep Apnea Risk Low
Discharge Diagnosis/Procedures AV node ablation, acute heart failure
Diet 2 Gram Sodium,Restrict fluids to 64 oz
Activity Other activity
Driving Restrictions As prior to admission
Bathing Restrictions OK to Shower
Other Services VN
Specialty Instructions Weigh Daily
Instructions: *DCA Heart Failure Instructions
Stand-Alone Forms: DC Instructions- Cath/EP Lab
Changes to Home Medications: Yes
Discharge Medications:
DC Medications w/original date entered in [facility]
ascorbic acid (vitamin C) 500 mg tablet (Vitamin C) 500 mg PO NOON Supplement 05/15/20
levothyroxine 75 mcg tablet 75 mcg PO DAILY Thyroid 01/11/23
vitamin B complex 1 tab PO QPM Supplement 05/20/24
calcium 500 mg (as carbonate)-vitamin D3 3.125 mcg (125 unit) tablet 1 tab PO DAILY Supplement 07/25/24
metoprolol succinate 25 mg tablet,extended release 24 hr (Toprol XL) 25 mg PO BID Arrhythmia 07/30/24
ferrous sulfate 325 mg (65 mg iron) tablet 325 mg PO NOON Supplement 08/08/24
furosemide 40 mg tablet 40 mg PO BID AT 0800,1600 Heart Failure #60 tabs 08/12/24
Home Medication Changes
HCTZ stopped
New to Lasix
Pending Results: No
[2024-08-12 11:21] VITALS: BP 101/54
--- NOTE | 2024-08-12 12:35 | PTCARENOTE ---
Discussed CHF instructions w/ pt. VSS. Pt verbalized understanding.
--- NOTE | 2024-08-13 10:32 | W.HF.CON ---
Heart Failure
- LV Function
Left ventricular function study result: LV Ejection fraction >/= 50%
Ejection Fraction Percentage: 55-60
- ARNI
Patient already on ARNI: No
Heart Failure ARNI Not Indicated: LV Ejection Fraction >/= 40%
- ACEI/ARB
Patient already on ACEI/ARB: No
Heart Failure ACEI/ARB Not Indicated: LV Ejection Fraction > 40%
- Beta Junaid
Patient already on Evidence Based Beta Junaid: Yes
- Mineralocorticord Receptor Antagonist
Patient already on MRA: No
Heart Failure MRA Not Indicated: LV Ejection Fraction > 40%
- SGLT-2 Inhibitor
Patient already on SGLT-2 Inhibitor: No
Heart Failure SGLT-2 Inhibitor Not Indicated: LV Ejection Fraction >40%
- Afib Anticoagulation
Patient already on Anticoagulation for Afib: No
Heart Failure Afib Anticoagulation Contraindication: Blood Dyscrasias (ITP)
- NYHA CHF Classification
NYHA CHF Classification Level: Class III - Symptoms w/ min exertion, interferes w/ nml daily activity
- ACC/AHA Stage
ACC/AHA Stage: Stage C: Symptomatic Heart Failure
== END 2024-08-12 12:39 | disposition home or self-care (01) | DRG 273 ==
LOC: IVU 12:57
PROVIDERS: Internal Medicine Cardiovascular Disease; Nurse Practitioner; Physician Assistant Medical; ADMITTING PHYSICIAN Internal Medicine Cardiovascular Disease; EMERGENCY PHYSICIAN Emergency Medicine; FAMILY PHYSICIAN Family Medicine; OTHER PHYSICIAN Internal Medicine Cardiovascular Disease
PROC: 4B02XSZ Measurement of Cardiac Pacemaker, External Approach (ICD-10-PCS; 2024-08-08)
PROC: 02583ZZ Destruction of Conduction Mechanism, Percutaneous Approach (ICD-10-PCS; 2024-08-09)
DX: I47.19 Other supraventricular tachycardia (principal); I50.31 Acute diastolic (congestive) heart failure; D69.3 Immune thrombocytopenic purpura; E87.1 Hypo-osmolality and hyponatremia; I48.19 Other persistent atrial fibrillation; E87.70 Fluid overload, unspecified; G47.33 Obstructive sleep apnea (adult) (pediatric); I08.3 Combined rheumatic disorders of mitral, aortic and tricuspid valves; E03.9 Hypothyroidism, unspecified; I11.0 Hypertensive heart disease with heart failure; Z85.3 Personal history of malignant neoplasm of breast; Z90.11 Acquired absence of right breast and nipple; Z79.01 Long term (current) use of anticoagulants; Z86.2 Personal history of diseases of the blood and blood-forming organs and certain disorders involving the immune mechanism; Z79.899 Other long term (current) drug therapy; I27.20 Pulmonary hypertension, unspecified; Z79.890 Hormone replacement therapy; Z88.0 Allergy status to penicillin; Z88.1 Allergy status to other antibiotic agents; Z88.5 Allergy status to narcotic agent; Z88.8 Allergy status to other drugs, medicaments and biological substances; Z91.041 Radiographic dye allergy status
CPT/HCPCS: 93308; 70450; 71045; 71046; 80048; 80053; 83735; 83880; 84443; 85025; 85027; 86803; 93005; 93286; 93321; 93325; 93650; 93926; 96361; 96365; 96366; 96375; 99285; C1733; C1766; C1894

== ENCOUNTER → 2024-08-22 10:04 | Outpatient (REF) | payer MEDICARE, OTHER, SELFPAY ==
[2024-08-22 11:50] LABS: NT-proBNP 1490 pg/ml
[2024-08-22 12:03] LABS: Blood Urea Nitrogen 22 mg/dl (7-17); Calcium 9.5 mg/dl (8.4-10.2); Carbon Dioxide 26 mmol/L (22-30); Chloride 103 mmol/L (98-107); Glucose 91 mg/dl (70-99); Potassium 4.2 mmol/L (3.5-5.1); Sodium 137 mmol/L (135-145); eGFR > 60.00
== END ==
LOC: REG 10:04
PROVIDERS: ATTENDING PHYSICIAN Internal Medicine Cardiovascular Disease; FAMILY PHYSICIAN Family Medicine
DX: E87.6 Hypokalemia (principal); I50.33 Acute on chronic diastolic (congestive) heart failure
CPT/HCPCS: 36415; 80048; 83880